=== PATIENT | female | born 1950 | race Caucasian/White ===

== ENCOUNTER → 2017-01-27 | Outpatient (CLI) | payer MEDICARE, OTHER ==
--- NOTE | 2017-01-27 20:44 | CT ---
EXAMINATION TYPE: CT abdomen pelvis wo con DATE OF EXAM: 01/27/2017 8:33 PM COMPARISON: NONE HISTORY: PT states of abdominal pain, hx of cholecystectomy. CT DLP: 852.0 mGycm Automated exposure control for dose reduction was used. TECHNIQUE: Helical acquisition of images was performed from the lung bases through the pelvis. FINDINGS: There is mild linear density in the lingula of the left upper lobe consistent with atelectasis. There is no pleural effusion. Heart size is normal. There are clips from cholecystectomy. Liver shows no focal defect. Spleen appears normal. There is no evidence of pancreatic mass. Bile ducts are not dilated. There is no adrenal mass. Kidneys have normal size and contour. There is no hydronephrosis. Ureters a re not dilated. Bladder distends smoothly. I see no intestinal wall thickening. There are no dilated loops. Appendix appears normal. I see no bony destructive process. IMPRESSION: MINIMAL ATELECTASIS IN THE LINGULA LEFT UPPER LOBE. NO SIGN OF ACUTE ABDOMEN AND PELVIS. I DO NOT SEE A CAUSE FOR ABDOMINAL PAIN. NORMAL APPENDIX. No adverse change compared to old exam.
== END | disposition home or self-care (01) ==
LOC: RADCTMAIN 15:07
PROVIDERS: ATTEND Family Medicine
DX: R10.30 Lower abdominal pain, unspecified (principal); R19.7 Diarrhea, unspecified
CPT/HCPCS: 74176

== ENCOUNTER → 2017-03-16 | Outpatient (CLI) | payer MEDICARE, OTHER ==
--- NOTE | 2017-03-16 16:13 | US ---
EXAMINATION TYPE: US thyroid st tissue head/neck DATE OF EXAM: 03/16/2017 4:00 PM COMPARISON: NONE CLINICAL HISTORY: 66-year-old female E03.8 hypothyroidism. TECHNIQUE: Multiple sonographic images of the thyroid gland are obtained. FINDINGS: Right Lobe: 3.2 x 0.9 x 1.0 cm Left Lobe: 2.5 x 0.8 x 1.0 cm Isthmus Thickness: 0.3 cm There is diffuse glandular heterogeneity without discrete nodule. IMPRESSION: Small and heterogeneous thyroid gland suggesting chronic hypothyroidism. No discrete nodule.
== END | disposition home or self-care (01) ==
LOC: RADUSWWP 15:40
PROVIDERS: ATTEND Internal Medicine Endocrinology, Diabetes & Metabolism
DX: E03.8 Other specified hypothyroidism (principal)
CPT/HCPCS: 76536

== ENCOUNTER → 2017-03-18 | Outpatient (CLI) | payer MEDICARE, OTHER ==
--- NOTE | 2017-03-18 13:07 | FL ---
Esophagram INDICATION: Dysphagia Esophagram is performed utilizing double air contrast technique. Esophagus dilates to normal caliber has normal contour to the gastroesophageal junction. Gastroesopha geal junction opens to normal caliber. No intraluminal arterial defects are evident. Reflux was evide nt to the level of the clavicles during the examination. There is poor stripping of the esophageal bolus in the horizontal drinking position. IMPRESSIONS: 1. Mild presbyesophagus. 2. Gastroesophageal reflux
== END | disposition home or self-care (01) ==
LOC: RADFLMAIN 11:04
PROVIDERS: ATTEND Surgery
DX: K21.9 Gastro-esophageal reflux disease without esophagitis (principal); K22.8 Other specified diseases of esophagus
CPT/HCPCS: 74220

== ENCOUNTER 2017-04-14 18:11 | Emergency (ER) | payer MEDICARE, OTHER ==
[2017-04-14] MEDS ORDERED: HYDROmorphone 1 MG/ML 1 ML SYRINGE IVP STA ×2 (18:37→20:28)
[2017-04-14] MEDS ORDERED: ONDANSETRON 4 MG/2 ML VIAL IVP STA (18:37)
[2017-04-14] MEDS ORDERED: SODIUM CHLORIDE 0.9% 1,000 ML IV STA (18:37)
--- NOTE | 2017-04-14 18:46 | ED ---
General Adult HPI - General Chief complaint: Headache Stated complaint: Migraine Time Seen by Provider: 04/14/17 18:28 Source: patient, RN notes reviewed, old records reviewed Mode of arrival: ambulatory Limitations: no limitations - History of Present Illness Initial comments: chief complaint and history of present illness this is a 66-year-old female with a complaint of headache. The patient has a history of migraine headaches. She had an EGD done this morning with a diagnosis of Trujillo's esophagus. The patient's blood pressure today is 208/99. Nausea no vomiting, no complaint of weakness or any neuro deficits. - Related Data Home Medications Medication Instructions Recorded Confirmed Pramipexole [Mirapex] 0.5 mg PO HS 04/18/14 04/14/17 buPROPion XL [Wellbutrin XL] 300 mg PO QAM 04/18/14 04/14/17 Hydrocodone/Acetaminophen 1 tab PO TID PRN 07/03/14 04/14/17 [Hydrocodone/Acetaminophen 10-325] ALPRAZolam [Xanax] 2 mg PO DAILY PRN 09/15/14 04/14/17 Dexlansoprazole [Dexilant] 60 mg PO HS 06/20/16 04/14/17 Simvastatin [Zocor] 10 mg PO HS 06/20/16 04/14/17 Estradiol 2 mg PO HS 04/14/17 04/14/17 Famotidine [Pepcid] 40 mg PO DAILY 04/14/17 04/14/17 Levothyroxine Sodium [Synthroid] 112 mcg PO DAILY 04/14/17 04/14/17 buPROPion HCL [Wellbutrin XL] 150 mg PO DAILY 04/14/17 04/14/17 Previous Rx's Medication Instructions Recorded Butalb/Acetaminophen/Caffeine 1 cap PO Q4HR #10 cap 04/14/17 [Fioricet 50-300-40 mg Capsule] Lisinopril [Zestril] 5 mg PO DAILY #60 tab 04/14/17 Allergies Allergy/AdvReac Type Severity Reaction Status Date / Time adhesive Allergy Rash/Hives Verified 04/14/17 19:17 cephalexin monohydrate Allergy Rash/Hives Verified 04/14/17 19:17 [From Keflex] ciprofloxacin [From Cipro] Allergy Rash/Hives Verified 04/14/17 19:17 codeine Allergy Rash/Hives Verified 04/14/17 19:17 diphenhydramine HCl Allergy Rash/Hives Verified 04/14/17 19:17 [From Benadryl] erythromycin base Allergy Rash/Hives Verified 04/14/17 19:17 [Erythromycin Base] eucalyptus Allergy Rash/Hives Verified 04/14/17 19:17 heparin Allergy Rash/Hives Verified 04/14/17 19:17 Iodinated Contrast Media - Allergy Rash/Hives Verified 04/14/17 19:17 Oral and [Iodinated Contrast Media - IV Dye] iodine Allergy Rash/Hives Verified 04/14/17 19:17 loperamide HCl Allergy Rash/Hives Verified 04/14/17 19:17 [From Imodium A-D] Penicillins Allergy Rash/Hives Verified 04/14/17 19:17 ranitidine HCl [From Zantac] Allergy Rash/Hives Verified 04/14/17 19:17 ropinirole HCl [From Requip] Allergy Rash/Hives Verified 04/14/17 19:17 shellfish derived Allergy Rash/Hives Verified 04/14/17 19:17 Sulfa (Sulfonamide Allergy Rash/Hives Verified 04/14/17 19:17 Antibiotics) vancomycin Allergy Anaphylaxis Verified 04/14/17 19:17 hydrocodone bitartrate AdvReac Rapid Verified 04/14/17 19:17 [From Vicodin] Heart Rate Review of Systems ROS Statement: Those systems with pertinent positive or pertinent negative responses have been documented in the HPI. review of systems patient has headache but no visual acuity changes she has discomfort to the left trapezius muscle. History of migraine type problems tension type headaches. No stiff neck. Nausea no vomiting no chest pain no shortness of breath no GI/ problems. Though she has a history of GERD and had an EGD done today that showed evidence of Trujillo's esophagitis. No neuro deficits. All systems reviewed Past medical problems significant for right breast cancer, mild COPD, TIA, GERD diagnosed with Trujillo's esophagitis. Some memory impairment, muscle skeletal disorder, hypothyroidism vascular disorder lower extremities. And hypothyroidism. Patient surgeries bladder suspension twice, bilateral breast mastectomies for right sided breast cancer. Cholecystectomy, total hysterectomy , arthroscopic surgery left knee. Tonsillectomy tubal ligation. Family history significant for father had squamous carcinoma Brother had anal squamous carcinoma. Grandmother had chest wall cancer. Patient quit smoking 20 years ago quit drinking 39 years ago ROS Other: All systems not noted in ROS Statement are negative. Past Medical History Past Medical History: Cancer, COPD, CVA/TIA, GERD/Reflux, Memory Impairment, Musculoskeletal Disorder, Thyroid Disorder, Vascular Disorder Additional Past Medical History / Comment(s): HYPOTHYROID, HX OF TIA DUE TO HEAD TRAUMA, RLS, MIGRAINES, NEUROPATHY, PERIPHERAL ARTERY DISEASE, HX OF PNEUMONIA & PLEURISY. HX OF MONO., IBS, DJD & BONE SPURS WITH BACK & NECK PAIN. , BAKERS CYSTS., HX OF ANEMIA. , BREAST CANCER 02/2014 WITH 6 MONTHS OF CHEMO., SURGICAL INFECTION WITH REMOVAL OF TISSUE EXPANDERS 09/2014, PALPITATIONS, History of Any Multi-Drug Resistant Organisms: None Reported Past Surgical History: Bladder Surgery, Breast Surgery, Cholecystectomy, Hysterectomy, Orthopedic Surgery, Tonsillectomy, Tubal Ligation Additional Past Surgical History / Comment(s): BLADDER SUSPENSION, LEFT KNEE ARTHROSCOPY, CATARACTS, CARPAL TUNNEL., TUNDE MASTECTOMY /LYMPHECTOMY ON RIGHT SIDE ONLY W/ TISSUE EXPANDERS(). , REMOVAL OF TISSUE EXPANDERS (09/2014), EXPANDERS REINSERTED 02/2015. BREAST IMPLANTS Past Anesthesia/Blood Transfusion Reactions: Previous Problems w/ Anesthesia Additional Past Anesthesia/Blood Transfusion Reaction / Comment(s): BP RUNS LOW AND DIFFICULTY WAKING UP Past Psychological History: Anxiety, Depression Smoking Status: Former smoker Past Alcohol Use History: None Reported Additional Past Alcohol Use History / Comment(s): HX OF ETOH USE, STATES SOBER 39 YRS, ATTENDS A.A., STARTED SMOKING AT AGE 17. QUIT 19 YEARS AGO Past Drug Use History: None Reported Additional Drug Use History / Comment(s): TEENAGER. - Past Family History Father Family Medical History: Cancer Additional Family Medical History / Comment(s): CANCER BEHIND ESOPHAGUS. Mother Family Medical History: No Reported History Brother(s) Family Medical History: Cancer Additional Family Medical History / Comment(s): ANAL CANCER General Exam - General Exam Comments Initial Comments: General: The patient is awake and alert, blunting of a headache. Nausea no vomiting. Vital signs temp 98.4 pulse 85 respiratory rate 20 pulse ox 99% room . Eye: Pupils are equal, round and reactive to light, extra-ocular movements are intact ; there is normal conjunctiva bilaterally. No signs of icterus. Ears, nose, mouth and throat: There are moist mucous membranes and no oral lesions. Neck: The neck is supple, there is no tenderness , no anterior cervical lymphadenopathy thyroid not enlarged. Cardiovascular: There is a regular rate and rhythm. No murmur, rub or gallop is appreciated. Respiratory: Lungs are clear to auscultation, respirations are non-labored, breath sounds are equal. No wheezes, stridor, rales, or rhonchi. Gastrointestinal: Soft, non-distended, non-tender abdomen without masses or organomegaly noted. There is no rebound or guarding present. No CVA tenderness. Bowel sounds are unremarkable. Back: no back pain Musculoskeletal: history of peripheral vascular disease Neurological: CN II-XII intact, There are no obvious motor or sensory deficits. Coordination appears grossly intact. Speech is normal.no focal or lateralizing findings Skin: Skin is warm and dry and no rashes or lesions are noted. Limitations: no limitations Course Vital Signs 04/14/17 04/14/17 04/14/17 18:20 19:31 20:26 Temperature 98.4 F 97.5 F L Pulse Rate 85 74 75 Respiratory 20 16 16 Rate Blood Pressure 208/99 165/74 153/76 O2 Sat by Pulse 99 97 98 Oximetry Medical Decision Making - Medical Decision Making patient states she was feeling better on the initial dose of medications. After 1 hour blood pressure came down currently 153/76 headache started coming back at this time. No nausea no vomiting. At this time the patient be given 1 mg of Dilaudid. Advised to follow-up with family physician should be placed on lisinopril 5 mg daily. Also advised to use Fioricet one every 6H when necessary headache as needed. Disposition Clinical Impression: Stress headache Disposition: HOME SELF-CARE Condition: Fair Instructions: Acute Headache (ED) Additional Instructions: take Fioricet one tablet every 4-6 hours for headache. Take lisinopril 1 tablet daily. Get blood pressure checked daily and follow-up with family physician Prescriptions: Butalb/Acetaminophen/Caffeine [Fioricet 50-300-40 mg Capsule] 1 cap PO Q4HR #10 cap Lisinopril [Zestril] 5 mg PO DAILY #60 tab Referrals: Sreedhar Gabriel III, MD [Primary Care Provider] - 1-2 days Time of Disposition: 20:32
[2017-04-14 19:32] VITALS: RESP 16
[2017-04-14 20:27] VITALS: TEMP 97.5
[2017-04-14 20:46] VITALS: BP 162/83; PULSE 72
== END 2017-04-14 20:51 | disposition home or self-care (01) ==
LOC: EC 18:11
DX: G44.209 Tension-type headache, unspecified, not intractable (principal); J44.9 Chronic obstructive pulmonary disease, unspecified; K21.9 Gastro-esophageal reflux disease without esophagitis; E03.9 Hypothyroidism, unspecified; K58.9 Irritable bowel syndrome, unspecified; G62.9 Polyneuropathy, unspecified; F32.9 Major depressive disorder, single episode, unspecified; F41.9 Anxiety disorder, unspecified; Z85.3 Personal history of malignant neoplasm of breast; Z87.891 Personal history of nicotine dependence; Z79.3 Long term (current) use of hormonal contraceptives; Z79.899 Other long term (current) drug therapy; Z88.5 Allergy status to narcotic agent; Z88.1 Allergy status to other antibiotic agents; Z91.041 Radiographic dye allergy status; Z88.2 Allergy status to sulfonamides; Z88.0 Allergy status to penicillin; Z88.8 Allergy status to other drugs, medicaments and biological substances; Z91.048 Other nonmedicinal substance allergy status
CPT/HCPCS: 99283; 96374; 96375; 96376; 96361 ×2; J2405; J1170

== ENCOUNTER → 2017-05-16 | Outpatient (CLI) | payer MEDICARE, OTHER | END | disposition home or self-care (01) | LOC: LABWHC1 12:23 | PROVIDERS: ATTEND Internal Medicine Endocrinology, Diabetes & Metabolism | DX: E03.8 Other specified hypothyroidism (principal) | CPT/HCPCS: 36415; 84443 ==

== ENCOUNTER → 2017-06-19 | Outpatient (CLI) | payer MEDICARE, OTHER ==
[2017-06-19 11:27] LABS: Blood Urea Nitrogen 16 mg/dL (7-17); Non-African American GFR(MDRD) >60 (>60 ml/min/1.73 sqM)
--- NOTE | 2017-06-19 13:24 | MR ---
EXAMINATION TYPE: MR brain wo/w con DATE OF EXAM: 06/19/2017 1:05 PM COMPARISON: Previous study dated 11/13/2016. HISTORY: Other abnormal findings on diagnostic imaging, migraines TECHNIQUE: Multiplanar, multiecho imaging of the brain was obtained with and without intravenous adm inistration of 13 mL intravenous MultiHance. FINDINGS: Midline structures are unremarkable. There is a normal craniocervical junction. Echoplanar diffusion imaging demonstrates no areas of restricted diffusion. There are normal vascular flow voids. There is mild mucoperiosteal thickening involving the ethmoid air cells. The orbits are normal. There is no evidence of a CP angle mass lesion. There are approximately 5 I signal FLAIR lesions in the deep white matter tracts of the cerebral vitor spheres. These are essentially unchanged from previous. There is no mass effect, midline shift or int racranial blood. Lesion in the ventral giovanna which previously measured 4.6 mm today measures of 5.2 mm. No other areas of abnormal enhancement are seen. IMPRESSION: 1. NO ACUTE INTRACRANIAL ABNORMALITY. 2. STABLE HIGH SIGNAL FLAIR LESION WITHIN THE DEEP WHITE MATTER TRACTS OF THE MEDIAL HEMISPHERES MAY REFLECT SMALL VESSEL DISEASE. OTHER FORMS OF DEMYELINATION ARE NOT EXCLUDED. 3. 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
== END | disposition home or self-care (01) ==
LOC: RADMRIMAIN 10:58
PROVIDERS: ATTEND Family Medicine
DX: R90.89 Other abnormal findings on diagnostic imaging of central nervous system (principal)
CPT/HCPCS: 82565; 84520; 70553; A9577

== ENCOUNTER → 2017-12-26 | Outpatient (CLI) | payer MEDICARE, OTHER ==
--- NOTE | 2017-12-26 09:23 | MR ---
MR lumbar spine wo/w con Low back pain Gadavist Multiplanar, multiecho imaging of the lumbar spine was obtained without contrast on a 3 Elsi magnet. REFERENCE: Previous study dated 11/21/2011. FINDINGS: Paraspinal soft tissues are normal. Vertebral body height is maintained. There is a mild, grade 1 degenerative spondylolisthesis of L5 on S1. Cord signal is maintained. The conus ends normally at the level of the mid body of L2. At T12-L1, is mild disc space loss. Intervertebral foramina are well maintained. There is no signific ant compressive discopathy. The facets are unremarkable. At L1-2, there is mild hypertrophic change in the facets. At L2-3, there is mild disc space loss. There is a mild, bilobed disc displacement. The intervertebra l foramina appear reasonably well-maintained. There is capsulitis and hypertrophic change in the face ts. At L3-4, the intervertebral foramina are well maintained. There is a diffuse disc displacement. This is effacing the thecal sac. There is mild hypertrophic change and capsulitis in the facets. At L4-5, the intervertebral foramina are well maintained. There is a diffuse disc displacement effaci ng the thecal sac. This hypertrophic changes in the facets. There is mild trefoiling of the thecal sa c. At L5-S1, The intervertebral foramina appear well maintained. There are hypertrophic changes in the f acets. There is a diffuse disc displacement. IMPRESSION: 1. MILD, DIFFUSE DEGENERATIVE DISC DISEASE AND FACET ARTHROPATHY. 2. DIFFUSE DISC DISPLACEMENT, L4-5 CAUSING MILD TREFOILING OF THE THECAL SAC. 3. MILD COMMON DEGENERATIVE GRADE 1 SPONDYLOLISTHESIS OF L5 ON S1.
== END | disposition home or self-care (01) ==
LOC: RADMRIMAIN 08:25
PROVIDERS: ATTEND Psychiatry & Neurology Neurology
DX: M51.26 Other intervertebral disc displacement, lumbar region (principal); M51.36 Other intervertebral disc degeneration, lumbar region; M43.17 Spondylolisthesis, lumbosacral region; M46.86 Other specified inflammatory spondylopathies, lumbar region
CPT/HCPCS: 72158; A9581

== ENCOUNTER → 2018-01-06 | Outpatient (CLI) | payer MEDICARE, OTHER ==
--- NOTE | 2018-01-06 15:58 | NM ---
EXAMINATION TYPE: NM bone scan whole body DATE OF EXAM: 01/06/2018 COMPARISON: NONE HISTORY: Pleurodynia, right lower leg pain, right rib pain Delayed whole-body scanning was performed following the injection of 21mCi Tc 99m MDP. Images acquir ed 3 hours post injection. FINDINGS: There is mild uptake at the costovertebral angle of the approximate eighth rib on the left likely deg enerative, there is mild spinal curvature, mild uptake also present at the 11th costovertebral angle level to lesser extent. Focal uptake present within the midfoot region on the right. Soft tissue upta ke is normal. Uptake within the knees, hands, wrists, shoulders and sternoclavicular joints is likely degenerative. IMPRESSION: Degenerative changes are favored. Metastatic disease felt to be less likely, consider follow-up as in dicated.
== END | disposition home or self-care (01) ==
LOC: RADNMMAIN 09:57
PROVIDERS: ATTEND Family Medicine
DX: M79.661 Pain in right lower leg (principal); R07.81 Pleurodynia
CPT/HCPCS: 78306; A9503

== ENCOUNTER → 2018-02-17 | Outpatient (CLI) | payer MEDICARE, OTHER ==
--- NOTE | 2018-02-17 14:31 | XR ---
EXAMINATION TYPE: XR chest 2V DATE OF EXAM: 02/17/2018 COMPARISON: 06/20/2016 HISTORY: Shortness of breath TECHNIQUE: Frontal and lateral views of the chest are obtained. FINDINGS: Scattered senescent parenchymal changes noted. Hyperinflation compatible with COPD. No evidence for infiltrate. No evidence for atelectasis. Heart size is stable. Mediastinal structures are stable and grossly unremarkable. No evidence for hilar prominence. Degenerative changes dorsal spine. IMPRESSION: 1. No evidence for acute pulmonary disease.
== END | disposition home or self-care (01) ==
LOC: RADXRMAIN 14:11
PROVIDERS: ATTEND Family Medicine
DX: R05 Cough (principal); R06.2 Wheezing
CPT/HCPCS: 71046

== ENCOUNTER 2018-03-20 20:46 | Emergency (ER) | payer MEDICARE, OTHER ==
[2018-03-20 21:04] VITALS: RESP 18
[2018-03-20] MEDS ORDERED: METOCLOPRAMIDE 5 MG/ML 2 ML VIAL IM STA (21:40)
[2018-03-20] MEDS ORDERED: KETOROLAC 30 MG/ML 1 ML VIAL IM STA (21:40)
[2018-03-20] MEDS ORDERED: DIAZEPAM 5 MG TAB PO STA (21:41)
--- NOTE | 2018-03-20 21:44 | ED ---
Headache HPI - General Chief Complaint: Headache Stated Complaint: Migraine Time Seen by Provider: 03/20/18 21:27 Mode of arrival: ambulatory Limitations: no limitations - History of Present Illness Initial Comments: 67-year-old female presenting with headache that began yesterday. Patient states started as a dull, viselike dietary clerk around her whole head. She states it has been progressively worsening since then. She does accompanied by photophobia. She admits to diagnose history of migraines. Denies any focal weakness, numbness, or vision changes. Denies any head injury. Denies any blood thinner use. Patient states she took aspirin without relief. Denies F/C. - Related Data Home Medications Medication Instructions Recorded Confirmed Pramipexole [Mirapex] 0.5 mg PO HS 04/18/14 04/14/17 buPROPion XL [Wellbutrin XL] 300 mg PO QAM 04/18/14 04/14/17 Hydrocodone/Acetaminophen 1 tab PO TID PRN 07/03/14 04/14/17 [Hydrocodone/Acetaminophen 10-325] ALPRAZolam [Xanax] 2 mg PO DAILY PRN 09/15/14 04/14/17 Dexlansoprazole [Dexilant] 60 mg PO HS 06/20/16 04/14/17 Simvastatin [Zocor] 10 mg PO HS 06/20/16 04/14/17 Estradiol 2 mg PO HS 04/14/17 04/14/17 Famotidine [Pepcid] 40 mg PO DAILY 04/14/17 04/14/17 Levothyroxine Sodium [Synthroid] 112 mcg PO DAILY 04/14/17 04/14/17 buPROPion HCL [Wellbutrin XL] 150 mg PO DAILY 04/14/17 04/14/17 Previous Rx's Medication Instructions Recorded Butalb/Acetaminophen/Caffeine 1 cap PO Q4HR #10 cap 04/14/17 [Fioricet 50-300-40 mg Capsule] Lisinopril [Zestril] 5 mg PO DAILY #60 tab 04/14/17 Allergies Allergy/AdvReac Type Severity Reaction Status Date / Time adhesive Allergy Rash/Hives Verified 03/20/18 21:05 cephalexin monohydrate Allergy Rash/Hives Verified 03/20/18 21:05 [From Keflex] ciprofloxacin [From Cipro] Allergy Rash/Hives Verified 03/20/18 21:05 codeine Allergy Rash/Hives Verified 03/20/18 21:05 diphenhydramine HCl Allergy Rash/Hives Verified 03/20/18 21:05 [From Benadryl] erythromycin base Allergy Rash/Hives Verified 03/20/18 21:05 [Erythromycin Base] eucalyptus Allergy Rash/Hives Verified 03/20/18 21:05 heparin Allergy Rash/Hives Verified 03/20/18 21:05 Iodinated Contrast- Oral and Allergy Rash/Hives Verified 03/20/18 21:05 IV Dye [Iodinated Contrast Media - IV Dye] iodine Allergy Rash/Hives Verified 03/20/18 21:05 levofloxacin [From Levaquin] Allergy Rash/Hives Verified 03/20/18 21:05 loperamide HCl Allergy Rash/Hives Verified 03/20/18 21:05 [From Imodium A-D] Penicillins Allergy Rash/Hives Verified 03/20/18 21:05 ranitidine HCl [From Zantac] Allergy Rash/Hives Verified 03/20/18 21:05 ropinirole HCl [From Requip] Allergy Rash/Hives Verified 03/20/18 21:05 shellfish derived Allergy Rash/Hives Verified 03/20/18 21:05 Sulfa (Sulfonamide Allergy Rash/Hives Verified 03/20/18 21:05 Antibiotics) vancomycin Allergy Anaphylaxis Verified 03/20/18 21:05 hydrocodone bitartrate AdvReac Rapid Verified 03/20/18 21:05 [From Vicodin] Heart Rate Review of Systems ROS Statement: Those systems with pertinent positive or pertinent negative responses have been documented in the HPI. Review of Systems Constitutional: Denies fever, chills Eyes: Denies change in vision, Denies pain Ears, nose, mouth, throat: Denies headaches, Denies sore throat Cardiovascular: Denies chest pain. Denies palpitations Respiratory: Denies shortness of breath, Denies cough Gastrointestinal: Denies abdominal pain. Denies nausea, vomiting, diarrhea. Genitourinary: Denies hematuria, Denies infections Musculoskeletal: Denies pain, Denies swelling Integumentary: Denies rash Neurological: Positive headache, focal weakness, focal numbness Psychiatric: Denies anxiety, Denies depression Hematologic/Lymphatic: Denies easy bleeding or bruising ROS Other: All systems not noted in ROS Statement are negative. Past Medical History Past Medical History: Cancer, COPD, CVA/TIA, GERD/Reflux, Memory Impairment, Musculoskeletal Disorder, Thyroid Disorder, Vascular Disorder Additional Past Medical History / Comment(s): HYPOTHYROID, HX OF TIA DUE TO HEAD TRAUMA, RLS, MIGRAINES, NEUROPATHY, PERIPHERAL ARTERY DISEASE, HX OF PNEUMONIA & PLEURISY. HX OF MONO., IBS, DJD & BONE SPURS WITH BACK & NECK PAIN. , BAKERS CYSTS., HX OF ANEMIA. , BREAST CANCER 02/2014 WITH 6 MONTHS OF CHEMO., SURGICAL INFECTION WITH REMOVAL OF TISSUE EXPANDERS 09/2014, PALPITATIONS, History of Any Multi-Drug Resistant Organisms: None Reported Past Surgical History: Bladder Surgery, Breast Surgery, Cholecystectomy, Hysterectomy, Orthopedic Surgery, Tonsillectomy, Tubal Ligation Additional Past Surgical History / Comment(s): BLADDER SUSPENSION, LEFT KNEE ARTHROSCOPY, CATARACTS, CARPAL TUNNEL., TUNDE MASTECTOMY /LYMPHECTOMY ON RIGHT SIDE ONLY W/ TISSUE EXPANDERS(). , REMOVAL OF TISSUE EXPANDERS (09/2014), EXPANDERS REINSERTED 02/2015. BREAST IMPLANTS Past Anesthesia/Blood Transfusion Reactions: Previous Problems w/ Anesthesia Additional Past Anesthesia/Blood Transfusion Reaction / Comment(s): BP RUNS LOW AND DIFFICULTY WAKING UP Past Psychological History: Anxiety, Depression Smoking Status: Former smoker Past Alcohol Use History: None Reported Past Drug Use History: None Reported - Past Family History Father Family Medical History: Cancer Additional Family Medical History / Comment(s): CANCER BEHIND ESOPHAGUS. Mother Family Medical History: No Reported History Brother(s) Family Medical History: Cancer Additional Family Medical History / Comment(s): ANAL CANCER General Exam - General Exam Comments Initial Comments: General: Awake, alert, No acute Distress HENT: Normocephalic. Atraumatic Eyes: PERRL. EOMI. No scleral icterus. No injected conjunctiva Neck: Full ROM Chest/Lungs: Clear to auscultation bilaterally. No wheezing, rhonchi, or rales Cardiac: Regular rate, rhythm. No murmurs or rubs Abdomen/GI: Soft, nontender, nondistended. No rebound, guarding, or rigidity. Musculoskeletal: Full ROM Skin: Warm, dry, intact Neurologic: A/Ox3, no weakness, no sensory deficit, no abnormal gait, no coordination deficit Limitations: no limitations Course Vital Signs 03/20/18 21:03 Temperature 98.5 F Pulse Rate 77 Respiratory 18 Rate Blood Pressure 178/85 O2 Sat by Pulse 98 Oximetry Medical Decision Making - Medical Decision Making 67 yoF presenting with PILLAI. On initial exam the patient is awake, alert, and in NAD. VSS. Patient has no neurologic deficit. She has a history of headaches. she has no history of trauma. Her symptoms are nonconsistent with SAH. Her symptoms improved while in the department. She was able to ambulate without any distress. At this time the patient is stable for outpatient follow up of her PILLAI. There is no evidence of life threatening diagnoses. No further emergent workup is indicated. Patient clear on return to ED instructions. Disposition Clinical Impression: Headache Disposition: HOME SELF-CARE Condition: Good Is patient prescribed a controlled substance at d/c from ED?: No Referrals: Sreedhar aGbriel III, MD [Primary Care Provider] - 1-2 days
[2018-03-20 23:31] VITALS: BP 124/69; PULSE 69; TEMP 97.5
== END 2018-03-20 23:30 | disposition home or self-care (01) ==
LOC: EC 20:46
DX: R51 Headache (principal); H53.149 Visual discomfort, unspecified; G25.81 Restless legs syndrome; E03.9 Hypothyroidism, unspecified; K21.9 Gastro-esophageal reflux disease without esophagitis; F32.9 Major depressive disorder, single episode, unspecified; Z87.891 Personal history of nicotine dependence; Z79.82 Long term (current) use of aspirin; Z79.899 Other long term (current) drug therapy; Z88.0 Allergy status to penicillin; Z88.1 Allergy status to other antibiotic agents; Z88.2 Allergy status to sulfonamides; Z88.5 Allergy status to narcotic agent; Z88.8 Allergy status to other drugs, medicaments and biological substances; Z85.3 Personal history of malignant neoplasm of breast; Z91.013 Allergy to seafood; Z91.041 Radiographic dye allergy status; Z91.09 Other allergy status, other than to drugs and biological substances; Z92.21 Personal history of antineoplastic chemotherapy; Z90.13 Acquired absence of bilateral breasts and nipples; Z98.890 Other specified postprocedural states; Z87.39 Personal history of other diseases of the musculoskeletal system and connective tissue
CPT/HCPCS: 99283; J2765; J1885

== ENCOUNTER 2018-05-24 12:10 | Emergency (ER) | payer MEDICARE, OTHER ==
[2018-05-24 12:27] VITALS: RESP 18
[2018-05-24 12:53] LABS: Appearance,Urine Clear (Clear); Bilirubin,Urine Negative (Negative); Blood,Urine Negative (Negative); Color,Urine Colorless; Glucose,Urine (UA) Negative (Negative); Ketones,Urine Negative (Negative); Leukocyte Esterase,Urine Negative (Negative); Nitrite,Urine Negative (Negative); Protein,Urine Negative (Negative); Specific Gravity,Urine 1.002 (1.001-1.035); Urobilinogen,Urine <2.0 mg/dL (<2.0)
[2018-05-24] MEDS ORDERED: SODIUM CHLORIDE 0.9% 500 ML IV ONE (13:23)
[2018-05-24] MEDS ORDERED: MORPHINE SULFATE 2 MG/ML SYRINGE IVP STA (13:23)
--- NOTE | 2018-05-24 13:26 | ED ---
General Adult HPI - General Chief complaint: Abdominal Pain Stated complaint: ABd Pain, Lower Back Time Seen by Provider: 05/24/18 13:16 Source: patient, RN notes reviewed, old records reviewed Mode of arrival: ambulatory Limitations: no limitations - History of Present Illness Initial comments: 67-year-old female presenting for evaluation of right flank pain and right upper quadrant abdominal pain. Patient's symptoms began approximately 4 AM which she is 9 hours prior to evaluation. She's had no nausea or vomiting. She describes a burning epigastric pain associated with her right flank pain and right upper quadrant pain. She has had her gallbladder removed in the past. Last bowel movement was yesterday was normal. No diarrhea. No lower abdominal pain. No dysuria or hematuria. Pain is colicky in nature. She has a dull constant right flank pain associated with this. No history of kidney stones. - Related Data Home Medications Medication Instructions Recorded Confirmed Pramipexole [Mirapex] 0.5 mg PO HS 04/18/14 05/24/18 buPROPion XL [Wellbutrin XL] 300 mg PO [facility] 04/18/14 05/24/18 Hydrocodone/Acetaminophen 1 tab PO TID PRN 07/03/14 05/24/18 [Hydrocodone/Acetaminophen 10-325] ALPRAZolam [Xanax] 2 mg PO DAILY PRN 09/15/14 05/24/18 Dexlansoprazole [Dexilant] 60 mg PO HS 06/20/16 05/24/18 Simvastatin [Zocor] 10 mg PO HS 06/20/16 05/24/18 Estradiol 2 mg PO HS 04/14/17 05/24/18 Famotidine [Pepcid] 40 mg PO DAILY 04/14/17 05/24/18 Cholecalciferol (Vitamin D3) 2,000 unit PO DAILY 05/24/18 05/24/18 [Vitamin D3] Cyanocobalamin (Vitamin B-12) 1,000 mcg PO DAILY 05/24/18 05/24/18 [Vitamin B-12] Levothyroxine Sodium [Synthroid] 125 mcg PO DAILY 05/24/18 05/24/18 Allergies Allergy/AdvReac Type Severity Reaction Status Date / Time adhesive Allergy Rash/Hives Verified 05/24/18 12:27 cephalexin monohydrate Allergy Rash/Hives Verified 05/24/18 13:34 [From Keflex] ciprofloxacin [From Cipro] Allergy Rash/Hives Verified 05/24/18 13:34 codeine Allergy Rash/Hives Verified 05/24/18 12:27 diphenhydramine HCl Allergy Rash/Hives Verified 05/24/18 13:34 [From Benadryl] erythromycin base Allergy Rash/Hives Verified 05/24/18 13:34 [Erythromycin Base] eucalyptus Allergy Rash/Hives Verified 05/24/18 13:34 heparin Allergy Rash/Hives Verified 05/24/18 13:34 Iodinated Contrast- Oral and Allergy Rash/Hives Verified 05/24/18 13:34 IV Dye [Iodinated Contrast Media - IV Dye] iodine Allergy Rash/Hives Verified 05/24/18 13:34 levofloxacin [From Levaquin] Allergy Rash/Hives Verified 05/24/18 13:34 loperamide HCl Allergy Rash/Hives Verified 05/24/18 13:34 [From Imodium A-D] Penicillins Allergy Rash/Hives Verified 05/24/18 13:34 ranitidine HCl [From Zantac] Allergy Rash/Hives Verified 05/24/18 13:34 ropinirole HCl [From Requip] Allergy Rash/Hives Verified 05/24/18 13:34 shellfish derived Allergy Rash/Hives Verified 05/24/18 12:27 Sulfa (Sulfonamide Allergy Rash/Hives Verified 05/24/18 13:34 Antibiotics) vancomycin Allergy Anaphylaxis Verified 05/24/18 13:34 hydrocodone bitartrate AdvReac Rapid Verified 05/24/18 13:34 [From Vicodin] Heart Rate Review of Systems ROS Statement: Those systems with pertinent positive or pertinent negative responses have been documented in the HPI. ROS Other: All systems not noted in ROS Statement are negative. Past Medical History Past Medical History: Cancer, COPD, CVA/TIA, GERD/Reflux, Memory Impairment, Musculoskeletal Disorder, Thyroid Disorder, Vascular Disorder Additional Past Medical History / Comment(s): HYPOTHYROID, HX OF TIA DUE TO HEAD TRAUMA, RLS, MIGRAINES, NEUROPATHY, PERIPHERAL ARTERY DISEASE, HX OF PNEUMONIA & PLEURISY. HX OF MONO., IBS, DJD & BONE SPURS WITH BACK & NECK PAIN. , BAKERS CYSTS., HX OF ANEMIA. , BREAST CANCER 02/2014 WITH 6 MONTHS OF CHEMO., SURGICAL INFECTION WITH REMOVAL OF TISSUE EXPANDERS 09/2014, PALPITATIONS, History of Any Multi-Drug Resistant Organisms: None Reported Past Surgical History: Bladder Surgery, Breast Surgery, Cholecystectomy, Hysterectomy, Orthopedic Surgery, Tonsillectomy, Tubal Ligation Additional Past Surgical History / Comment(s): BLADDER SUSPENSION, LEFT KNEE ARTHROSCOPY, CATARACTS, CARPAL TUNNEL., TUNDE MASTECTOMY /LYMPHECTOMY ON RIGHT SIDE ONLY W/ TISSUE EXPANDERS(). , REMOVAL OF TISSUE EXPANDERS (09/2014), EXPANDERS REINSERTED 02/2015. BREAST IMPLANTS Past Anesthesia/Blood Transfusion Reactions: Previous Problems w/ Anesthesia Additional Past Anesthesia/Blood Transfusion Reaction / Comment(s): BP RUNS LOW AND DIFFICULTY WAKING UP Past Psychological History: Anxiety, Depression Smoking Status: Former smoker Past Alcohol Use History: None Reported Past Drug Use History: None Reported - Past Family History Father Family Medical History: Cancer Additional Family Medical History / Comment(s): CANCER BEHIND ESOPHAGUS. Mother Family Medical History: No Reported History Brother(s) Family Medical History: Cancer Additional Family Medical History / Comment(s): ANAL CANCER General Exam Limitations: no limitations General appearance: alert, in no apparent distress Head exam: Present: atraumatic, normocephalic Eye exam: Present: normal appearance, PERRL ENT exam: Present: normal exam Neck exam: Present: normal inspection. Absent: tenderness Respiratory exam: Present: normal lung sounds bilaterally. Absent: respiratory distress Cardiovascular Exam: Present: regular rate, normal rhythm GI/Abdominal exam: Present: soft, tenderness (Right upper quadrant, and epigastric tenderness.). Absent: distended Extremities exam: Present: normal inspection, full ROM, normal capillary refill. Absent: pedal edema Neurological exam: Present: alert, oriented X3, CN II-XII intact. Absent: motor sensory deficit Psychiatric exam: Present: normal affect, normal mood Skin exam: Present: warm, dry, intact. Absent: cyanosis, diaphoretic Course Vital Signs 05/24/18 05/24/18 12:24 15:23 Temperature 98.1 F 97.1 F L Pulse Rate 87 85 Respiratory 18 18 Rate Blood Pressure 163/91 156/72 O2 Sat by Pulse 98 100 Oximetry Medical Decision Making - Medical Decision Making 67-year-old female presenting with right-sided abdominal pain and flank pain. History is initially concerning for kidney stone or renal colic. Patient appears uncomfortable. Urinalysis is obtained, this is negative for hematuria. Normal CBC and CMP. CT does show left-sided renal calculus which is nonobstructing. No acute findings to explain her pain. On reevaluation, she is very comfortable. Patient will be discharged home, she will return with worsening or changing symptoms. Patient does have pain medication at home. - Lab Data Result diagrams: 05/24/18 13:53 05/24/18 13:45 Lab Results 05/24/18 05/24/18 05/24/18 Range/Units 12:12 13:45 13:53 WBC 5.0 (3.8-10.6) k/uL RBC 4.53 (3.80-5.40) m/uL Hgb 13.6 (11.4-16.0) gm/dL Hct 41.3 (34.0-46.0) % MCV 91.2 (80.0-100.0) fL MCH 30.1 (25.0-35.0) pg MCHC 33.0 (31.0-37.0) g/dL RDW 13.8 (11.5-15.5) % Plt Count 178 (150-450) k/uL Neutrophils % 62 % Lymphocytes % 28 % Monocytes % 5 % Eosinophils % 4 % Basophils % 1 % Neutrophils # 3.1 (1.3-7.7) k/uL Lymphocytes # 1.4 (1.0-4.8) k/uL Monocytes # 0.3 (0-1.0) k/uL Eosinophils # 0.2 (0-0.7) k/uL Basophils # 0.0 (0-0.2) k/uL PT (9.0-12.0) sec INR (<1.2) APTT (22.0-30.0) sec Sodium 140 (137-145) mmol/L Potassium 4.0 (3.5-5.1) mmol/L Chloride 103 (98-107) mmol/L Carbon Dioxide 26 (22-30) mmol/L Anion Gap 11 mmol/L BUN 14 (7-17) mg/dL Creatinine 0.82 (0.52-1.04) mg/dL Est GFR (CKD-EPI)AfAm 87 (>60 ml/min/1.73 sqM) Est GFR (CKD-EPI)NonAf 75 (>60 ml/min/1.73 sqM) Glucose 80 (74-99) mg/dL Calcium 9.3 (8.4-10.2) mg/dL Total Bilirubin 0.4 (0.2-1.3) mg/dL AST 26 (14-36) U/L ALT 31 (9-52) U/L Alkaline Phosphatase 72 (38-126) U/L Troponin I (0.000-0.034) ng/mL Total Protein 6.6 (6.3-8.2) g/dL Albumin 4.4 (3.5-5.0) g/dL Amylase 60 (30-110) U/L Lipase 38 (23-300) U/L Urine Color Colorless Urine Appearance Clear (Clear) Urine pH 6.0 (5.0-8.0) Ur Specific [place] 1.002 (1.001-1.035) Urine Protein Negative (Negative) Urine Glucose (UA) Negative (Negative) Urine Ketones Negative (Negative) Urine Blood Negative (Negative) Urine Nitrite Negative (Negative) Urine Bilirubin Negative (Negative) Urine Urobilinogen <2.0 (<2.0) mg/dL Ur Leukocyte Esterase Negative (Negative) 05/24/18 05/24/18 Range/Units 13:53 13:53 WBC (3.8-10.6) k/uL RBC (3.80-5.40) m/uL Hgb (11.4-16.0) gm/dL Hct (34.0-46.0) % MCV (80.0-100.0) fL MCH (25.0-35.0) pg MCHC (31.0-37.0) g/dL RDW (11.5-15.5) % Plt Count (150-450) k/uL Neutrophils % % Lymphocytes % % Monocytes % % Eosinophils % % Basophils % % Neutrophils # (1.3-7.7) k/uL Lymphocytes # (1.0-4.8) k/uL Monocytes # (0-1.0) k/uL Eosinophils # (0-0.7) k/uL Basophils # (0-0.2) k/uL PT 9.6 (9.0-12.0) sec INR 1.0 (<1.2) APTT 20.1 L (22.0-30.0) sec Sodium (137-145) mmol/L Potassium (3.5-5.1) mmol/L Chloride (98-107) mmol/L Carbon Dioxide (22-30) mmol/L Anion Gap mmol/L BUN (7-17) mg/dL Creatinine (0.52-1.04) mg/dL Est GFR (CKD-EPI)AfAm (>60 ml/min/1.73 sqM) Est GFR (CKD-EPI)NonAf (>60 ml/min/1.73 sqM) Glucose (74-99) mg/dL Calcium (8.4-10.2) mg/dL Total Bilirubin (0.2-1.3) mg/dL AST (14-36) U/L ALT (9-52) U/L Alkaline Phosphatase (38-126) U/L Troponin I <0.012 (0.000-0.034) ng/mL Total Protein (6.3-8.2) g/dL Albumin (3.5-5.0) g/dL Amylase (30-110) U/L Lipase (23-300) U/L Urine Color Urine Appearance (Clear) Urine pH (5.0-8.0) Ur Specific [place] (1.001-1.035) Urine Protein (Negative) Urine Glucose (UA) (Negative) Urine Ketones (Negative) Urine Blood (Negative) Urine Nitrite (Negative) Urine Bilirubin (Negative) Urine Urobilinogen (<2.0) mg/dL Ur Leukocyte Esterase (Negative) Disposition Clinical Impression: Abdominal pain Disposition: HOME SELF-CARE Instructions: Abdominal Pain (ED) Is patient prescribed a controlled substance at d/c from ED?: No Referrals: Sreedhar Gabriel III, MD [Primary Care Provider] - 1-2 days Time of Disposition: 15:43
[2018-05-24] MEDS ORDERED: PANTOPRAZOLE 40 MG/10 ML VIAL IVP STA (13:27)
[2018-05-24] MEDS ORDERED: methylPREDNISolone SOD SUCCI 125 MG/2 ML VIAL IV STA (13:31)
[2018-05-24] MEDS ORDERED: LORATADINE 10 MG TAB PO STA (14:00)
[2018-05-24 14:11] LABS: Basophils % (A) 1 %; Eosinophils # (A) 0.2 k/uL (0-0.7); Eosinophils % (A) 4 %; HCT 41.3 % (34.0-46.0); HGB 13.6 gm/dL (11.4-16.0); Lymphocytes # (A) 1.4 k/uL (1.0-4.8); Lymphocytes % (A) 28 %; MCH 30.1 pg (25.0-35.0); MCV 91.2 fL (80.0-100.0); Mean Platelet Volume 7.7; Monocytes # (A) 0.3 k/uL (0-1.0); Monocytes % (A) 5 %; Neutrophils # (A) 3.1 k/uL (1.3-7.7); Neutrophils % (A) 62 %; Platelet Count 178 k/uL (150-450); RBC 4.53 m/uL (3.80-5.40); RDW 13.8 % (11.5-15.5)
[2018-05-24 14:12] LABS: Albumin 4.4 g/dL (3.5-5.0); Calcium 9.3 mg/dL (8.4-10.2); Total Bilirubin 0.4 mg/dL (0.2-1.3); Total Protein 6.6 g/dL (6.3-8.2)
[2018-05-24 14:24] LABS: Prothrombin Time 9.6 sec (9.0-12.0)
[2018-05-24 14:28] LABS: Partial Thromboplastin Time 20.1 sec (22.0-30.0)
--- NOTE | 2018-05-24 15:11 | CT ---
EXAMINATION TYPE: CT abdomen pelvis wo con DATE OF EXAM: 05/24/2018 COMPARISON: Prior CT 01/27/2017 HISTORY: Right flank pain that radiates into abdomen. CT DLP: 798 mGycm Automated exposure control for dose reduction was used. TECHNIQUE: Helical acquisition of images from the lung bases through the pelvis. FINDINGS: Lack of intravenous contrast could compromise sensitivity. Breast prosthetics noted inciden tally. LUNG BASES: Minimal scarring present in the lingula as on prior exam, minimal dependent atelectatic c hanges are suspected. AORTA: No significant abnormality is appreciated. LIVER/GB: Patient is post cholecystectomy. No evident liver mass. PANCREAS: No significant abnormality is seen. SPLEEN: No significant abnormality is seen. ADRENALS: No significant abnormality is seen. KIDNEYS: There is a punctate left renal calculus is nonobstructive at the lower pole on the left, no evident ureteral calculi bilaterally. REPRODUCTIVE ORGANS: Not seen. URINARY BLADDER: No significant abnormality is seen. BOWEL: No bowel obstruction. The appendix is normal. FREE AIR: No Free Air is visible. ASCITES: None visible. PELVIC ADENOPATHY: None visualized. RETROPERITONEAL ADENOPATHY: No Retroperitoneal Adenopathy visible. OSSEOUS STRUCTURES: Degenerative disc changes noted in lumbar spine. There are associated facet arth ropathy changes at the lower levels. Small lipoma in the right within the musculature immediately ant erior to the hip joint IMPRESSION: NONOBSTRUCTIVE LEFT NEPHROLITHIASIS. Postop changes.
[2018-05-24 15:52] VITALS: BP 134/87; PULSE 87; TEMP 97.4
== END 2018-05-24 15:52 | disposition home or self-care (01) ==
LOC: EC 12:10
DX: R10.11 Right upper quadrant pain (principal); R10.13 Epigastric pain; M54.5 Low back pain; N20.0 Calculus of kidney; K21.9 Gastro-esophageal reflux disease without esophagitis; E03.9 Hypothyroidism, unspecified; F41.9 Anxiety disorder, unspecified; F32.9 Major depressive disorder, single episode, unspecified; Z87.891 Personal history of nicotine dependence; Z85.3 Personal history of malignant neoplasm of breast; Z86.73 Personal history of transient ischemic attack (TIA), and cerebral infarction without residual deficits; Z92.21 Personal history of antineoplastic chemotherapy; Z90.49 Acquired absence of other specified parts of digestive tract; Z90.710 Acquired absence of both cervix and uterus; Z98.51 Tubal ligation status; Z90.13 Acquired absence of bilateral breasts and nipples; Z79.899 Other long term (current) drug therapy; Z88.0 Allergy status to penicillin; Z88.1 Allergy status to other antibiotic agents; Z88.2 Allergy status to sulfonamides; Z88.5 Allergy status to narcotic agent; Z88.8 Allergy status to other drugs, medicaments and biological substances; Z91.013 Allergy to seafood; Z91.041 Radiographic dye allergy status; Z91.048 Other nonmedicinal substance allergy status
CPT/HCPCS: 36415; 80053; 82150; 83690; 84484; 85025; 85610; 85730; 81003; 74176; 99284; 96374; 96375 ×2; 96361 ×2; J2930; J2270; C9113

== ENCOUNTER → 2018-06-03 | Outpatient (CLI) | payer MEDICARE, OTHER ==
--- NOTE | 2018-06-03 15:25 | XR ---
Right foot HISTORY: Pain 3 views of the right foot correlated prior exam 12/07/2014 There is no interval change. Degenerative change present at the metatarsophalangeal joint of the firs t digit, bone mineralization, joint spaces and alignment are stable. No fracture or dislocation. IMPRESSION: Mild osteoarthritis.
== END | disposition home or self-care (01) ==
LOC: RADXRMAIN 12:04
PROVIDERS: ATTEND Family Medicine
DX: M19.071 Primary osteoarthritis, right ankle and foot (principal)

== ENCOUNTER → 2018-06-16 | Outpatient (CLI) | payer MEDICARE, OTHER ==
--- NOTE | 2018-06-17 08:19 | USB ---
Reason for exam: clinical finding. History: Patient is postmenopausal and has history of breast cancer at age 63. Family history of breast cancer in grandmother. Silicone gel implants in both breasts, 2015. Reconstructions of both breasts, 2015. Chemotherapy, 2015. Malignant US RT VAD breast biopsy of the right breast, January 12, 2014. Benign US LT VAD breast biopsy of the left breast, January 12, 2014. Benign US LT VAD breast biopsy of the left breast, January 12, 2014. Mastectomy of both breasts, 2013. Core biopsy of the left breast, 1989. Excisional biopsy of the left breast, 1979. Taking estrogen for 21 years beginning at age 46. Physical Findings: Nurse did not find any significant physical abnormalities on exam. US Breast LT Left complete breast ultrasound includes all four quadrants, the retroareolar region and axilla. Finding demonstrates a 2 x 1 x 3mm oval lesion too small to characterize at 11 o'clock and a 7 x 4 x 18mm oval, hypoechoic lesion at 10 o'clock. Nipple removed. These results were verbally communicated with the patient and result sheet given to the patient on 06/16/18. ASSESSMENT: Probably benign, BI-RAD 3 RECOMMENDATION: Clinical management of the left breast. Manage on a clinical basis with regard to pain.
== END | disposition home or self-care (01) ==
LOC: RADMAMWWP 14:24
PROVIDERS: ATTEND Family Medicine
DX: N64.4 Mastodynia (principal); Z85.3 Personal history of malignant neoplasm of breast

== ENCOUNTER → 2018-09-29 | Outpatient (CLI) | payer MEDICARE, OTHER ==
[2018-09-29 10:44] LABS: Basophils % (A) 1 %; Eosinophils # (A) 0.2 k/uL (0-0.7); Eosinophils % (A) 3 %; HCT 43.3 % (34.0-46.0); HGB 14.1 gm/dL (11.4-16.0); Lymphocytes # (A) 1.2 k/uL (1.0-4.8); Lymphocytes % (A) 20 %; MCH 30.4 pg (25.0-35.0); MCHC 32.5 g/dL (31.0-37.0); MCV 93.5 fL (80.0-100.0); Mean Platelet Volume 6.9; Monocytes # (A) 0.2 k/uL (0-1.0); Monocytes % (A) 4 %; Neutrophils # (A) 4.2 k/uL (1.3-7.7); Neutrophils % (A) 71 %; Platelet Count 195 k/uL (150-450); RBC 4.63 m/uL (3.80-5.40); RDW 13.3 % (11.5-15.5); WBC 5.9 k/uL (3.8-10.6)
[2018-09-29 17:58] LABS: Albumin 4.4 g/dL (3.80-4.90); Albumin/Globulin Ratio 2.75 (1.20-2.10); Calcium 9.2 mg/dL (8.7-10.3); Globulin 1.6 g/dL (2.1-3.7); Potassium 4.7 mmol/L (3.5-5.5); Total Bilirubin 0.3 mg/dL (0.2-1.2)
== END | disposition home or self-care (01) ==
LOC: LABWHC1 10:24
PROVIDERS: ATTEND Nurse Practitioner Family
DX: R10.11 Right upper quadrant pain (principal)
CPT/HCPCS: 36415; 80053; 82150; 83690; 85025

== ENCOUNTER → 2018-11-18 | Day surgery (SDC) | payer MEDICARE, OTHER ==
--- NOTE | 2018-11-18 13:42 | USB ---
Reason for exam: clinical finding. History: Patient is postmenopausal and has history of breast cancer at age 63. Family history of breast cancer in grandmother. Silicone gel implants in both breasts, 2015. Reconstructions of both breasts, 2015. Chemotherapy, 2015. Malignant US RT VAD breast biopsy of the right breast, January 12, 2014. Benign US LT VAD breast biopsy of the left breast, January 12, 2014. Benign US LT VAD breast biopsy of the left breast, January 12, 2014. Mastectomy of both breasts, 2013. Core biopsy of the left breast, 1989. Excisional biopsy of the left breast, 1979. Taking estrogen for 21 years beginning at age 46. Indicated problem(s): large axillary lymph nodes in the right breast. Physical Findings: Nurse Summary: 1cm nodule at axilla (nurse karma). US Breast RT Right complete breast ultrasound includes all four quadrants, the retroareolar region and axilla. Finding demonstrates no cystic or solid lesion seen. These results were verbally communicated with the patient and result sheet given to the patient on 11/18/18. ASSESSMENT: Negative, BI-RAD 1 RECOMMENDATION: Clinical management of the right breast. Manage patient on a clinical basis.
== END ==
LOC: RADUSWWP 11:16
PROVIDERS: ATTEND Internal Medicine Hematology & Oncology
DX: R59.0 Localized enlarged lymph nodes (principal); Z85.3 Personal history of malignant neoplasm of breast; Z53.8 Procedure and treatment not carried out for other reasons

== ENCOUNTER → 2020-12-18 | Outpatient (CLI) | payer MEDICARE ==
[2020-12-18 15:21] LABS: Basophils # (A) 0.1 k/uL (0-0.2); Basophils % (A) 1 %; Eosinophils # (A) 0.1 k/uL (0-0.7); Eosinophils % (A) 2 %; HCT 46.3 % (34.0-46.0); HGB 15.2 gm/dL (11.4-16.0); Lymphocytes # (A) 1.4 k/uL (1.0-4.8); Lymphocytes % (A) 24 %; MCH 30.1 pg (25.0-35.0); MCHC 32.9 g/dL (31.0-37.0); MCV 91.4 fL (80.0-100.0); Monocytes # (A) 0.3 k/uL (0-1.0); Monocytes % (A) 5 %; Neutrophils % (A) 67 %; Platelet Count 208 k/uL (150-450); RBC 5.06 m/uL (3.80-5.40); RDW 12.9 % (11.5-15.5)
[2020-12-18 15:32] LABS: Albumin 4.6 g/dL (3.5-5.0); Potassium 4.5 mmol/L (3.5-5.1); Total Bilirubin 0.9 mg/dL (0.2-1.3); Total Protein 7.4 g/dL (6.3-8.2)
--- NOTE | 2020-12-19 08:15 | MM ---
Reason for exam: screening (asymptomatic). Last mammogram was performed 6 years and 11 months ago. History: Patient is postmenopausal and has history of breast cancer at age 63. Family history of breast cancer in grandmother. Silicone gel implants in both breasts, 2015. Reconstructions of both breasts, 2015. Chemotherapy, 2015. Malignant US RT VAD breast biopsy of the right breast, January 12, 2014. Benign US LT VAD breast biopsy of the left breast, January 12, 2014. Benign US LT VAD breast biopsy of the left breast, January 12, 2014. Mastectomy of both breasts, 2013. Core biopsy of the left breast, 1989. Excisional biopsy of the left breast, 1979. Taking estrogen for 21 years beginning at age 46. Physical Findings: A clinical breast exam by your physician is recommended on an annual basis and results should be correlated with mammographic findings. MG Screening Mammo Implant/CAD Bilateral CC, MLO, and ID view(s) were taken. Prior study comparison: January 12, 2014, left breast digital mammogram. December 19, 2013, CAD bilateral diagnostic mammogram. There are scattered fibroglandular densities. Bilateral implants are intact and difficult to move. No significant changes when compared with prior studies. ASSESSMENT: Benign, BI-RAD 2 RECOMMENDATION: Routine screening mammogram of both breasts in 1 year.
--- NOTE | 2020-12-19 15:56 | BD ---
EXAMINATION TYPE: Axial Bone Density DATE OF EXAM: 12/18/2020 COMPARISON: NONE CLINICAL HISTORY: Height: 60 Weight: 134.4 FRAX RISK QUESTIONS: Alcohol (3 or more units per day): no Family History (Parent hip fracture): no Glucocorticoids (More than 3mos): no (Ex: prednisone, prednisolone, methylprednisolone, dexamethasone, and hydrocortisone). History of Fracture in Adulthood: yes Secondary Osteoporosis: 1. Type 1 Diabetes: no 2. Hyperthyroidism: no 3. Menopause before 45: yes 4. Malnutrition: no 5. Chronic liver disease: no Rheumatoid Arthritis: no Current Tobacco Use: no RISK FACTORS HISTORY OF: Spine Fracture: spine When: 1974 Family History of Osteoporosis: yes Active: no Diet low in dairy products/other sources of calcium: yes Postmenopausal woman: 1996 Lost more than 2 inches in height since high school: yes MEDICATIONS: bladder control meds, restless leg meds, allergy meds Thyroid Medications: thyroid How Lon years Additional History: EXAM MEASUREMENTS: Bone mineral densitometry was performed using the [employer]. Bone mineral density as measured about the Lumbar spine is: ----- L1-L4(G/cm2): 1.020 T Score Values are as follows: ----- L2: -1.3 ----- L3: -1.4 ----- L4: -1.4 ----- L1-L4: -1.4 Bone mineral density : baseline Bone mineral density about the R hip (g/cm2): 0.910 Bone mineral density about the L hip (g/cm2): 0.850 T Score values are as follows: -----R Neck: -0.9 -----L Neck: -1.3 -----R Total: -1.0 -----L Total: -1.2 Bone mineral density : baseline IMPRESSION: Osteopenia (T Score between -2.5 and -1). There is slightly increased risk of fracture and the patient may be considered for treatment. Re-Screen 2-5 years. NOTE: T-SCORE=SD OF THE YOUNG ADULT MEAN.
== END | disposition home or self-care (01) ==
LOC: RADMAMWWP 13:38
PROVIDERS: ATTEND Family Medicine
DX: Z12.31 Encounter for screening mammogram for malignant neoplasm of breast (principal); M85.80 Other specified disorders of bone density and structure, unspecified site; Z79.899 Other long term (current) drug therapy; N39.46 Mixed incontinence; E03.9 Hypothyroidism, unspecified; E78.00 Pure hypercholesterolemia, unspecified
CPT/HCPCS: 77067; 77080; 80053; 80061; 82306; 82607; 84443; 85025

== ENCOUNTER 2021-10-02 23:38 | Emergency (ER) | payer MEDICARE ==
[2021-10-02 23:52] VITALS: BP 143/72; PULSE 85; RESP 20; TEMP 97.9
[2021-10-03] MEDS ORDERED: DIPH,PERTUS(ACELL)TETVAC-LF 0.5 ML VIAL IM ONE (00:07)
--- NOTE | 2021-10-03 00:33 | XR ---
EXAMINATION TYPE: XR foot complete LT DATE OF EXAM: 10/03/2021 COMPARISON: 12/07/2014 HISTORY: Needle in the foot TECHNIQUE: 3 views FINDINGS: There is small linear metallic density projected in the soft tissues of the forefoot at the plantar aspect of the second and third MP joints consistent with a broken needle foreign body. Joint spaces are normal. Metatarsals are intact. The hindfoot is intact. IMPRESSION: Small metallic foreign body. No fracture seen.
--- NOTE | 2021-10-03 00:52 | ED ---
Skin/Abscess/FB HPI - General Chief complaint: Skin/Abscess/Foreign Body Stated complaint: stepped on needle Time Seen by Provider: 10/02/21 23:55 Source: patient, RN notes reviewed, old records reviewed Mode of arrival: wheelchair Limitations: no limitations - History of Present Illness Initial comments: This is a 70-year-old female to the emergency department today. Patient presents today for evaluation of pain pain from stepping on a sewing needle. No Evidence of Infection. Patient Has Minimal Bleeding from the Site but No Other Complaints. was able to walk the needle without difficulty no significant again current bleeding. No other injuries patient can ambulate. No history of diabetes but again multiple medication ALLERGIES MD complaint: foreign body -: hour(s) Tetanus Up to Date: yes Location: R foot Severity: mild Quality: aching Consistency: constant Improves with: none Worsens with: none Context: other (Patient stepped on a sewing needle) Associated symptoms: denies other symptoms - Related Data Home Medications Medication Instructions Recorded Confirmed Pramipexole [Mirapex] 0.5 mg PO HS 04/18/14 10/09/21 Hydrocodone/Acetaminophen 1 tab PO TID PRN 07/03/14 10/09/21 [Hydrocodone/Acetaminophen 10-325] ALPRAZolam [Xanax] 1 mg PO DAILY PRN 09/15/14 10/09/21 Simvastatin [Zocor] 10 mg PO HS 06/20/16 10/09/21 Estradiol 0.25 mg PO HS 04/14/17 10/09/21 Famotidine [Pepcid] 40 mg PO HS 04/14/17 10/09/21 Cholecalciferol (Vitamin D3) 2,000 unit PO HS 05/24/18 10/09/21 [Vitamin D3] Cyanocobalamin (Vitamin B-12) 1,000 mcg PO HS 05/24/18 10/09/21 [Vitamin B-12] Clobetasol Propionate [Temovate 1 applic TOPICAL HS 10/09/21 10/09/21 0.05% Cream] Levothyroxine Sodium 125 mcg PO HS 10/09/21 10/09/21 amLODIPine BESYLATE 5 mg PO HS 10/09/21 10/09/21 Previous Rx's Medication Instructions Recorded Clindamycin [Cleocin] 450 mg PO Q8H 7 Days #21 cap 10/04/21 Allergies Allergy/AdvReac Type Severity Reaction Status Date / Time adhesive Allergy Rash/Hives Verified 10/09/21 14:42 cephalexin monohydrate Allergy Rash/Hives Verified 10/09/21 14:42 [From Keflex] ciprofloxacin [From Cipro] Allergy Rash/Hives Verified 10/09/21 14:42 codeine Allergy Rash/Hives Verified 10/11/21 10:34 diphenhydramine HCl Allergy Rash/Hives Verified 10/11/21 10:34 [From Benadryl] erythromycin base Allergy Rash/Hives Verified 10/11/21 10:34 [Erythromycin Base] eucalyptus Allergy Rash/Hives Verified 10/11/21 10:34 heparin Allergy Rash/Hives Verified 10/11/21 10:34 Influenza Virus Vaccines Allergy Rash/Hives Verified 10/11/21 10:34 Iodinated Contrast Media Allergy Rash/Hives Verified 10/11/21 10:34 [Iodinated Contrast Media - IV Dye] iodine Allergy Rash/Hives Verified 10/11/21 10:34 levofloxacin [From Levaquin] Allergy Rash/Hives Verified 10/11/21 10:34 loperamide HCl Allergy Rash/Hives Verified 10/11/21 10:34 [From Imodium A-D] Penicillins Allergy Rash/Hives Verified 10/11/21 10:34 ranitidine HCl [From Zantac] Allergy Rash/Hives Verified 10/11/21 10:34 ropinirole HCl [From Requip] Allergy Rash/Hives Verified 10/11/21 10:34 shellfish derived Allergy Rash/Hives Verified 10/11/21 10:34 Sulfa (Sulfonamide Allergy Rash/Hives Verified 10/11/21 10:34 Antibiotics) vancomycin Allergy Anaphylaxis Verified 10/11/21 10:34 hydrocodone bitartrate AdvReac Rapid Verified 10/11/21 10:34 [From Vicodin] Heart Rate Review of Systems ROS Statement: Those systems with pertinent positive or pertinent negative responses have been documented in the HPI. ROS Other: All systems not noted in ROS Statement are negative. 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 HX OF MONO., IBS, DJD & BONE SPURS WITH BACK & NECK PAIN. , BAKERS CYSTS., HX OF ANEMIA. , BREAST CANCER 02/2014 WITH 6 MONTHS OF CHEMO., SURGICAL INFECTION WITH REMOVAL OF TISSUE EXPANDERS 09/2014, PALPITATIONS, History of Any Multi-Drug Resistant Organisms: None Reported Past Surgical History: Bladder Surgery, Breast Surgery, Cholecystectomy, Hysterectomy, Orthopedic Surgery, Tonsillectomy, Tubal Ligation Additional Past Surgical History / Comment(s): BLADDER SUSPENSION, LEFT KNEE ARTHROSCOPY, BILATERAL CATARACTS, BILATERAL CARPAL TUNNEL., TUNDE MASTECTOMY /LYMPHECTOMY ON RIGHT SIDE ONLY W/ TISSUE EXPANDERS(). , REMOVAL OF TISSUE EXPANDERS (09/2014), EXPANDERS REINSERTED 02/2015. BREAST IMPLANTS Past Anesthesia/Blood Transfusion Reactions: Previous Problems w/ Anesthesia Additional Past Anesthesia/Blood Transfusion Reaction / Comment(s): BP RUNS LOW AND DIFFICULTY WAKING UP Past Psychological History: Anxiety, Depression Smoking Status: Former smoker Past Alcohol Use History: None Reported Past Drug Use History: None Reported - Past Family History Father Family Medical History: Cancer Additional Family Medical History / Comment(s): CANCER BEHIND ESOPHAGUS. Mother Family Medical History: No Reported History Brother(s) Family Medical History: Cancer Additional Family Medical History / Comment(s): ANAL CANCER General Exam Limitations: no limitations General appearance: alert, in no apparent distress Head exam: Present: atraumatic, normocephalic, normal inspection Eye exam: Present: normal appearance, PERRL, EOMI. Absent: scleral icterus, conjunctival injection, periorbital swelling ENT exam: Present: normal exam, mucous membranes moist Neck exam: Present: normal inspection. Absent: tenderness, meningismus, lymphadenopathy Respiratory exam: Present: normal lung sounds bilaterally. Absent: respiratory distress, wheezes, rales, rhonchi, stridor Cardiovascular Exam: Present: regular rate, normal rhythm, normal heart sounds. Absent: systolic murmur, diastolic murmur, rubs, gallop, clicks GI/Abdominal exam: Present: soft, normal bowel sounds. Absent: distended, tenderness, guarding, rebound, rigid Extremities exam: Present: normal inspection, full ROM, normal capillary refill, other (Puncture wound bottom of right foot). Absent: tenderness, pedal edema, joint swelling, calf tenderness Back exam: Present: normal inspection Neurological exam: Present: alert, oriented X3, CN II-XII intact Psychiatric exam: Present: normal affect, normal mood Skin exam: Present: warm, dry, intact, normal color. Absent: rash Course Vital Signs 10/02/21 23:50 Temperature 97.9 F Pulse Rate 85 Respiratory 20 Rate Blood Pressure 143/72 O2 Sat by Pulse 98 Oximetry - Reevaluation(s) Reevaluation #1: Medical record is reviewed Patient symptoms are improved here in the emergency department Patient is informed of results and questions are answered Medical Decision Making - Medical Decision Making 70 female to the emergency department for evaluation of puncture wound to right foot. Patient is multiple medication ALLERGIES, patient states she has adequate pain control will be discharged without antibiotics currently and patient is okay with that plan. Will return if signs of infection Disposition Clinical Impression: Puncture wound Disposition: HOME SELF-CARE Condition: Good Instructions (If sedation given, give patient instructions): Puncture Wound ( ED) Is patient prescribed a controlled substance at d/c from ED?: No Referrals: Florida Kovacs MD [Primary Care Provider] - 1-2 days
== END 2021-10-03 01:39 | disposition home or self-care (01) ==
LOC: EC 23:38
DX: S91.331A Puncture wound without foreign body, right foot, initial encounter (principal); J44.9 Chronic obstructive pulmonary disease, unspecified; K21.9 Gastro-esophageal reflux disease without esophagitis; E07.9 Disorder of thyroid, unspecified; F41.9 Anxiety disorder, unspecified; F32.A Depression, unspecified; Z88.7 Allergy status to serum and vaccine; Z88.5 Allergy status to narcotic agent; Z88.1 Allergy status to other antibiotic agents; Z88.0 Allergy status to penicillin; Z88.2 Allergy status to sulfonamides; Z86.73 Personal history of transient ischemic attack (TIA), and cerebral infarction without residual deficits; Z85.3 Personal history of malignant neoplasm of breast; Z90.49 Acquired absence of other specified parts of digestive tract; Z90.710 Acquired absence of both cervix and uterus; Z98.51 Tubal ligation status; Z87.891 Personal history of nicotine dependence; W27.3XXA Contact with needle (sewing), initial encounter
CPT/HCPCS: 90471; 90715; 99283

== ENCOUNTER 2021-10-04 15:15 | Emergency (ER) | payer MEDICARE ==
[2021-10-04 16:20] VITALS: BP 172/84; PULSE 98; RESP 20; TEMP 98.6
--- NOTE | 2021-10-04 16:43 | XR ---
EXAMINATION TYPE: XR foot complete LT DATE OF EXAM: 10/04/2021 COMPARISON: NONE HISTORY: Needle foreign body the foot TECHNIQUE: 3 views FINDINGS: I see no fracture nor dislocation. Joint spaces are normal. There is a small linear metalli c density consistent with a broken needle in the soft tissues between the second and third MP joints. This is on the plantar aspect. There is minor spurring at the first MP joint. The toes are intact. I see no focal bone destruction. IMPRESSION: There is needle foreign body without change in position compared to yesterday.
--- NOTE | 2021-10-04 20:14 | ED ---
General Adult HPI - General Chief complaint: Extremity Injury, Lower Stated complaint: L foot swelling/pain Time Seen by Provider: 10/04/21 19:44 Source: patient, RN notes reviewed, old records reviewed Mode of arrival: ambulatory Limitations: no limitations - History of Present Illness Initial comments: Well-appearing 70-year-old female presents to the emergency room with complaints of left foot pain. Patient states that she was seen here Thursday for same. She states that she stepped on a long sewing needle that went through the bottom of her foot out the top. She states her pulled out the needle but a piece broke off inside her foot. She had x-ray done on Thursday evening and they referred her to orthopedics for evaluation. They did give her a tetanus shot at that time. She has multiple ALLERGIES to medications and she opted not to take antibiotics. She states that she is returning to the emergency room today because it is starting to get warm and red and more painful. She does have an appointment with orthopedics on Thursday. -: days(s) (3) Location: left, lower extremity (Foot) Severity scale (1-10): 9 Quality: aching, sharp Consistency: constant Improves with: none Worsens with: other (Ambulation) Associated Symptoms: denies other symptoms - Related Data Home Medications Medication Instructions Recorded Confirmed Pramipexole [Mirapex] 0.5 mg PO HS 04/18/14 11/09/18 buPROPion XL [Wellbutrin XL] 300 mg PO QA 04/18/14 11/09/18 Hydrocodone/Acetaminophen 1 tab PO TID PRN 07/03/14 11/09/18 [Hydrocodone/Acetaminophen 10-325] ALPRAZolam [Xanax] 2 mg PO DAILY PRN 09/15/14 11/09/18 Dexlansoprazole [Dexilant] 60 mg PO HS 06/20/16 11/09/18 Simvastatin [Zocor] 10 mg PO HS 06/20/16 11/09/18 Estradiol 2 mg PO HS 04/14/17 11/09/18 Famotidine [Pepcid] 40 mg PO DAILY 04/14/17 11/09/18 Cholecalciferol (Vitamin D3) 2,000 unit PO DAILY 05/24/18 11/09/18 [Vitamin D3] Cyanocobalamin (Vitamin B-12) 1,000 mcg PO DAILY 05/24/18 11/09/18 [Vitamin B-12] Levothyroxine Sodium [Synthroid] 112 mcg PO DAILY 11/09/18 11/09/18 Previous Rx's Medication Instructions Recorded Clindamycin [Cleocin] 450 mg PO Q8H 7 Days #21 cap 10/04/21 Allergies Allergy/AdvReac Type Severity Reaction Status Date / Time adhesive Allergy Rash/Hives Verified 10/04/21 16:20 cephalexin monohydrate Allergy Rash/Hives Verified 10/04/21 16:20 [From Keflex] ciprofloxacin [From Cipro] Allergy Rash/Hives Verified 10/04/21 16:20 codeine Allergy Rash/Hives Verified 10/04/21 16:20 diphenhydramine HCl Allergy Rash/Hives Verified 10/04/21 16:20 [From Benadryl] erythromycin base Allergy Rash/Hives Verified 10/04/21 16:20 [Erythromycin Base] eucalyptus Allergy Rash/Hives Verified 10/04/21 16:20 heparin Allergy Rash/Hives Verified 10/04/21 16:20 Influenza Virus Vaccines Allergy Rash/Hives Verified 10/04/21 16:20 Iodinated Contrast Media Allergy Rash/Hives Verified 10/04/21 16:20 [Iodinated Contrast Media - IV Dye] iodine Allergy Rash/Hives Verified 10/04/21 16:20 levofloxacin [From Levaquin] Allergy Rash/Hives Verified 10/04/21 16:20 loperamide HCl Allergy Rash/Hives Verified 10/04/21 16:20 [From Imodium A-D] Penicillins Allergy Rash/Hives Verified 10/04/21 16:20 ranitidine HCl [From Zantac] Allergy Rash/Hives Verified 10/04/21 16:20 ropinirole HCl [From Requip] Allergy Rash/Hives Verified 10/04/21 16:20 shellfish derived Allergy Rash/Hives Verified 10/04/21 16:20 Sulfa (Sulfonamide Allergy Rash/Hives Verified 10/04/21 16:20 Antibiotics) vancomycin Allergy Anaphylaxis Verified 10/04/21 16:20 hydrocodone bitartrate AdvReac Rapid Verified 10/04/21 16:20 [From Vicodin] Heart Rate Review of Systems ROS Statement: Those systems with pertinent positive or pertinent negative responses have been documented in the HPI. ROS Other: All systems not noted in ROS Statement are negative. 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 HX OF MONO., IBS, DJD & BONE SPURS WITH BACK & NECK PAIN. , BAKERS CYSTS., HX OF ANEMIA. , BREAST CANCER 02/2014 WITH 6 MONTHS OF CHEMO., SURGICAL INFECTION WITH REMOVAL OF TISSUE EXPANDERS 09/2014, PALPITATIONS, History of Any Multi-Drug Resistant Organisms: None Reported Past Surgical History: Bladder Surgery, Breast Surgery, Cholecystectomy, Hysterectomy, Orthopedic Surgery, Tonsillectomy, Tubal Ligation Additional Past Surgical History / Comment(s): BLADDER SUSPENSION, LEFT KNEE ARTHROSCOPY, BILATERAL CATARACTS, BILATERAL CARPAL TUNNEL., TUNDE MASTECTOMY /LYMPHECTOMY ON RIGHT SIDE ONLY W/ TISSUE EXPANDERS(). , REMOVAL OF TISSUE EXPANDERS (09/2014), EXPANDERS REINSERTED 02/2015. BREAST IMPLANTS Past Anesthesia/Blood Transfusion Reactions: Previous Problems w/ Anesthesia Additional Past Anesthesia/Blood Transfusion Reaction / Comment(s): BP RUNS LOW AND DIFFICULTY WAKING UP Past Psychological History: Anxiety, Depression Smoking Status: Former smoker Past Alcohol Use History: None Reported Past Drug Use History: None Reported - Past Family History Father Family Medical History: Cancer Additional Family Medical History / Comment(s): CANCER BEHIND ESOPHAGUS. Mother Family Medical History: No Reported History Brother(s) Family Medical History: Cancer Additional Family Medical History / Comment(s): ANAL CANCER General Exam Limitations: no limitations General appearance: alert, in no apparent distress Eye exam: Present: normal appearance, EOMI Respiratory exam: Present: normal lung sounds bilaterally. Absent: respiratory distress, wheezes, rales, rhonchi, stridor Cardiovascular Exam: Present: regular rate, normal rhythm, normal heart sounds. Absent: systolic murmur, diastolic murmur, rubs, gallop, clicks GI/Abdominal exam: Present: soft, normal bowel sounds. Absent: distended, tenderness, guarding, rebound, rigid Left Foot/Toe exam: Present: tenderness, swelling, erythema Neurovascular tendon exam: Present: no vascular compromise. Absent: extremity cold to touch, foot drop Neurological exam: Present: alert, oriented X3 Psychiatric exam: Present: normal affect, normal mood Skin exam: Present: warm, dry, intact, normal color. Absent: rash Course Vital Signs 10/04/21 16:18 Temperature 98.6 F Pulse Rate 98 Respiratory 20 Rate Blood Pressure 172/84 O2 Sat by Pulse 99 Oximetry Medical Decision Making - Medical Decision Making Patient states that on Thursday evening she stepped on a long sewing needle that went to the bottom of her foot. Her was able to pull the needle out the piece broke off inside her foot. She came to the emergency room at that time and had an x-ray. There was evidence of a foreign body. She was referred to follow up with orthopedics. She had an updated tetanus shot at that time. She returned for worsening redness and pain. X-rays today show a needle foreign body without change in position from yesterday located between the second and third metaphalangeal joints. Case is discussed with Dr. Mcknight. Patient will be placed on antibiotics and directed to keep her appointment with orthopedics on Thursday. Rest, ice, and elevate while at home. Disposition Clinical Impression: Puncture wound, Foreign body in foot, left Disposition: HOME SELF-CARE Condition: Good Instructions (If sedation given, give patient instructions): Soft Tissue Foreign Body (ED) Additional Instructions: Take antibiotics as prescribed. Return if any new or concerning symptoms. Follow-up with your primary care doctor next week and orthopedics on Thursday for continuation of care. Prescriptions: Clindamycin [Cleocin] 450 mg PO Q8H 7 Days #21 cap Is patient prescribed a controlled substance at d/c from ED?: No Referrals: [place] Kovacs MD [Primary Care Provider] - 1-2 days Honorio Walls MD [Medical Doctor] - 1-2 days Time of Disposition: 20:14
== END 2021-10-04 20:28 | disposition home or self-care (01) ==
LOC: EC 15:15
DX: S91.342A Puncture wound with foreign body, left foot, initial encounter (principal); J44.9 Chronic obstructive pulmonary disease, unspecified; E03.9 Hypothyroidism, unspecified; F41.9 Anxiety disorder, unspecified; F32.9 Major depressive disorder, single episode, unspecified; K21.9 Gastro-esophageal reflux disease without esophagitis; Z85.3 Personal history of malignant neoplasm of breast; Z86.73 Personal history of transient ischemic attack (TIA), and cerebral infarction without residual deficits; Z87.891 Personal history of nicotine dependence; Z88.0 Allergy status to penicillin; Z88.1 Allergy status to other antibiotic agents; Z88.2 Allergy status to sulfonamides; Z88.5 Allergy status to narcotic agent; Z88.8 Allergy status to other drugs, medicaments and biological substances; Z79.890 Hormone replacement therapy; Z79.899 Other long term (current) drug therapy; W27.3XXA Contact with needle (sewing), initial encounter
CPT/HCPCS: 99283

== ENCOUNTER 2021-10-11 10:12 | Day surgery (SDC) | payer MEDICARE ==
[2021-10-09 15:45] VITALS: BMI 25.9
[~2021-10-11 10:12] MED LIST: DEXAMETHASONE SOD PHOSPHATE 4 MG/ML 1 ML VIAL IV ONE; LACTATED RINGERS 1,000 ML IV SCH; MIDAZOLAM 2 MG/2 ML VIAL IV PRN; ONDANSETRON 4 MG/2 ML VIAL IVP ONE; Pre Op ABX Message 1 EACH MISC MISCELLANE ONE; fentaNYL (PF) 50 MCG/ML 2 ML AMP IV PRN
[2021-10-11 10:43] VITALS: RESP 16
[2021-10-11] MEDS ORDERED: CLINDAMYCIN 600 MG in DEXTROSE 5% IN WATER 50 ML IVPB STA ×2 (11:04)
[2021-10-11] MEDS ORDERED: MIDAZOLAM 2 MG/2 ML VIAL ONE (11:30)
[2021-10-11] MEDS ORDERED: fentaNYL (PF) 50 MCG/ML 2 ML AMP ONE (11:30)
[2021-10-11] MEDS ORDERED: PROPOFOL 10 MG/ML 20 ML VIAL IV ONE (11:30)
[2021-10-11] MEDS ORDERED: LIDOCAINE 1% INJ 10MG/ML (20 ML MDV) ONE (11:30)
[2021-10-11] MEDS ORDERED: BUPIVACAINE (PF) 0.25% 30 ML VIAL SQ ONE ×2 (11:53)
[2021-10-11 12:20] VITALS: TEMP 97
[2021-10-11] MEDS ORDERED: HYDROmorphone 0.5 MG/0.5 ML SYRINGE IVP ONE ×2 (12:20→12:51)
--- NOTE | 2021-10-11 12:24 | P.OP ---
Date of Procedure: 10/11/21 Preoperative Diagnosis: Retained foreign body (deep) left foot Postoperative Diagnosis: Same Procedure(s) Performed: Removal of deep foreign body left foot Implants: None Anesthesia: MICHA Surgeon: Arie Parker Estimated Blood Loss (ml): 1 Pathology: none sent Condition: stable Disposition: PACU Description of Procedure: The patient was brought into the operating room and placed on table supine position. Timeout was taken to confirm correct patient identifiers, correct site of surgery, and correct procedure. When all staff in the room in agreement with the timeout the patient was induced and placed under general anesthesia. A well-padded tourniquet was placed on the left ankle. 10 mL 0.25% Marcaine was injected as a midfoot block. And then the left foot was prepped and draped in usual manner. The foot was exsanguinated with an Esmarch bandage and the tourniquet inflated to 250 motors mercury. Utilizing a metallic pointer fluoroscopy was used to centralize the location of the foreign body. Incision was made over the area between the second and third metatarsal heads. The incision was deepened down to the subcutaneous layer careful to identify, avoid, and retract any neurovascular structures and cauterize any bleeding vessels. Dissection was continued down to the interspace between the second and third metatarsals. There is no evidence of the foreign body in this area. The transverse intermetatarsal ligament was transected and further dissection down deep revealed the very small metallic foreign body. It was grasped and able to be removed intact. Fluoroscopy confirmed complete removal of the object. The area was also explored for any other foreign body specifically sewing thread that may have been on the needle at the time of the injury. However after thorough exploration none was found. There is also no evidence of any purulence or abscess formation. The wound is thoroughly irrigated with sterile saline. Subcutaneous closure was completed with 4-0 Monocryl. And skin closure done with 3-0 nylon. Nonadherent gauze and a bulky dry dressing applied to left foot. The tourniquet was released and capillary refill return to all digits of the left foot. Anesthesia was reversed and the patient went to recovery vital signs stable
[2021-10-11 14:17] VITALS: BP 126/79; PULSE 68
== END 2021-10-11 14:27 | disposition home or self-care (01) ==
LOC: OR 10:12
PROVIDERS: ATTEND Podiatrist
DX: M79.5 Residual foreign body in soft tissue (principal); I10 Essential (primary) hypertension; J44.9 Chronic obstructive pulmonary disease, unspecified; K21.9 Gastro-esophageal reflux disease without esophagitis; E07.9 Disorder of thyroid, unspecified; E78.5 Hyperlipidemia, unspecified; Z88.5 Allergy status to narcotic agent; Z79.899 Other long term (current) drug therapy; Z88.0 Allergy status to penicillin; Z88.2 Allergy status to sulfonamides; Z88.8 Allergy status to other drugs, medicaments and biological substances; Z88.1 Allergy status to other antibiotic agents; Z91.041 Radiographic dye allergy status; Z87.891 Personal history of nicotine dependence; Z86.73 Personal history of transient ischemic attack (TIA), and cerebral infarction without residual deficits
CPT/HCPCS: 28192; J2250; J1100; J2405; J2001; J3010; J2704; J1170

== ENCOUNTER → 2022-02-21 | Outpatient (CLI) | payer MEDICARE ==
--- NOTE | 2022-02-22 03:35 | MR ---
EXAMINATION TYPE: MR foot LT wo/w con DATE OF EXAM: 02/21/2022 COMPARISON: None HISTORY: Stepped on needle that went through foot near 2nd metatarsal on Sep 2021. Foot pain, difficu lty moving toes, concern for osteomyelitis. CONTRAST: Standard multiplanar, multisequence MRI departmental protocol images were obtained without contrast a nd with 6 mL intravenous Gadavist gadolinium contrast. The Achilles tendon is intact. Medial and lateral flexor tendons of the foot appear intact. The metat arsals are intact. The toes appear intact. No evidence of focal bone destruction. There is mild subcu taneous edema around the entire foot and ankle. The bones of the midfoot appear intact. IMPRESSION: Minimal subcutaneous edema on the dorsum of the foot and around the ankle. No fracture. No evidence of osteomyelitis. No evidence of a soft tissue mass.
== END | disposition home or self-care (01) ==
LOC: RADMRIMAIN 18:15
PROVIDERS: ATTEND Podiatrist Foot & Ankle Surgery
DX: R60.0 Localized edema (principal)
CPT/HCPCS: 73720; A9585

== ENCOUNTER → 2022-08-28 | Outpatient (CLI) | payer MEDICARE ==
--- NOTE | 2022-08-28 11:49 | US ---
EXAMINATION TYPE: US abdomen complete DATE OF EXAM: 08/28/2022 COMPARISON: Abdominal ultrasound 10/06/2018 CLINICAL HISTORY: K59.00 CONSTIPATION R10.84 ABD PAIN R19.7 DIARRHEA. TECHNIQUE: Multiple sonographic images of the abdomen are obtained. FINDINGS: EXAM MEASUREMENTS: Liver Length: 15.4 cm Gallbladder Wall: Surgically absent cm CBD: 0.95 cm previously 1.1 cm. Spleen: 9.3 cm Right Kidney: 10.0 x 4.5 x 4.5 cm Left Kidney: 9.2 x 4.5 x 3.5 cm Pancreas: wnl Liver: wnl . No cystic or solid mass is identified. No intrahepatic biliary ductal dilatation. Gallbladder: Surgically absent CBD: Prominent but stable and not unexpected in the setting of cholecystectomy. Spleen: wnl Right Kidney: wnl . No shadowing calculi, hydronephrosis, or solid contour deforming mass. Left Kidney: Inferior pole echogenic focus with shadowing and twinkle artifact 0.44 x 0.46 x 0.31cm . No hydronephrosis or solid contour deforming mass. Upper IVC: wnl Abd Aorta: Mild atherosclerotic changes. No abdominal aortic aneurysm. IMPRESSION: 1. No acute process. 2. Nonobstructive left renal calculus.
== END | disposition home or self-care (01) ==
LOC: RADUSWWP 11:06
PROVIDERS: ATTEND Family Medicine
DX: N20.0 Calculus of kidney (principal); R19.7 Diarrhea, unspecified; R63.0 Anorexia; R63.4 Abnormal weight loss; Z85.3 Personal history of malignant neoplasm of breast
CPT/HCPCS: 76700

== ENCOUNTER → 2022-10-22 | Outpatient (CLI) | payer MEDICARE ==
--- NOTE | 2022-10-22 09:25 | XR ---
EXAMINATION TYPE: XR cervical spine 3 views DATE OF EXAM: 10/22/2022 Comparison: None Clinical History: 71-year-old female M54.2 Cervicalgia Findings: Normal odontoid view. Uncovertebral joint and facet arthropathy mid to lower cervical spine. There is moderate disc/endplate degenerative change particularly at C5-C7 levels. Degenerative grade 1 vee listhesis at C4-C5 and C7-T1. Remaining alignment is maintained. No predental space widening or preve rtebral soft tissue swelling. Degenerative change of the C1 dens articulation. Impression: Moderate spondylotic changes especially C5-C7 levels. Degenerative grade 1 anterolisthesis C4-C5 and C7-T1.
== END | disposition home or self-care (01) ==
LOC: RADXRMAIN 07:34
PROVIDERS: ATTEND Family Medicine
DX: M47.812 Spondylosis without myelopathy or radiculopathy, cervical region (principal); M43.12 Spondylolisthesis, cervical region
CPT/HCPCS: 72040

== ENCOUNTER 2022-11-09 02:59 | Emergency (ER) | payer MEDICARE ==
[2022-11-09 03:12] VITALS: TEMP 98.4
--- NOTE | 2022-11-09 03:46 | ED ---
URI HPI - General Chief Complaint: Upper Respiratory Infection Stated Complaint: Sore throat, LT earache Time Seen by Provider: 11/09/22 03:02 Source: family Mode of arrival: ambulatory Limitations: no limitations - Related Data Home Medications Medication Instructions Recorded Confirmed Pramipexole [Mirapex] 0.5 mg PO HS 04/18/14 10/09/21 Hydrocodone/Acetaminophen 1 tab PO TID PRN 07/03/14 10/09/21 [Hydrocodone/Acetaminophen 10-325] ALPRAZolam [Xanax] 1 mg PO DAILY PRN 09/15/14 10/09/21 Simvastatin [Zocor] 10 mg PO HS 06/20/16 10/09/21 Famotidine [Pepcid] 40 mg PO HS 04/14/17 10/09/21 estradioL [Estradiol] 0.25 mg PO HS 04/14/17 10/09/21 Cholecalciferol (Vitamin D3) 2,000 unit PO HS 05/24/18 10/09/21 [Vitamin D3] Cyanocobalamin (Vitamin B-12) 1,000 mcg PO HS 05/24/18 10/09/21 [Vitamin B-12] Clobetasol Propionate [Temovate 1 applic TOPICAL HS 10/09/21 10/09/21 0.05% Cream] Levothyroxine Sodium 125 mcg PO HS 10/09/21 10/09/21 amLODIPine BESYLATE 5 mg PO HS 10/09/21 10/09/21 Previous Rx's Medication Instructions Recorded Clindamycin [Cleocin] 450 mg PO Q8H 7 Days #21 cap 10/04/21 Amoxic-Pot Clav 875-125Mg 1 tab PO Q12HR #20 tablet 11/09/22 [Augmentin 875-125] Allergies Allergy/AdvReac Type Severity Reaction Status Date / Time adhesive Allergy Rash/Hives Verified 11/09/22 03:12 cephalexin monohydrate Allergy Rash/Hives Verified 11/09/22 03:12 [From Keflex] ciprofloxacin [From Cipro] Allergy Rash/Hives Verified 11/09/22 03:12 codeine Allergy Rash/Hives Verified 11/09/22 03:12 diphenhydramine HCl Allergy Rash/Hives Verified 11/09/22 03:12 [From Benadryl] erythromycin base Allergy Rash/Hives Verified 11/09/22 03:12 [Erythromycin Base] eucalyptus Allergy Rash/Hives Verified 11/09/22 03:12 heparin Allergy Rash/Hives Verified 11/09/22 03:12 Influenza Virus Vaccines Allergy Rash/Hives Verified 11/09/22 03:12 Iodinated Contrast Media Allergy Rash/Hives Verified 11/09/22 03:12 [Iodinated Contrast Media - IV Dye] iodine Allergy Rash/Hives Verified 11/09/22 03:12 levofloxacin [From Levaquin] Allergy Rash/Hives Verified 11/09/22 03:12 loperamide HCl Allergy Rash/Hives Verified 11/09/22 03:12 [From Imodium A-D] Penicillins Allergy Rash/Hives Verified 11/09/22 03:12 ranitidine HCl [From Zantac] Allergy Rash/Hives Verified 11/09/22 03:12 ropinirole HCl [From Requip] Allergy Rash/Hives Verified 11/09/22 03:12 shellfish derived Allergy Rash/Hives Verified 11/09/22 03:12 Sulfa (Sulfonamide Allergy Rash/Hives Verified 11/09/22 03:12 Antibiotics) vancomycin Allergy Anaphylaxis Verified 11/09/22 03:12 hydrocodone bitartrate AdvReac Rapid Verified 11/09/22 03:12 [From Vicodin] Heart Rate Review of Systems ROS Statement: Those systems with pertinent positive or pertinent negative responses have been documented in the HPI. ROS Other: All systems not noted in ROS Statement are negative. Past Medical History Past Medical History: Cancer, COPD, CVA/TIA, GERD/Reflux, Memory Impairment, Musculoskeletal Disorder, Thyroid Disorder, Vascular Disorder Additional Past Medical History / Comment(s): HYPOTHYROID, HX OF TIA DUE TO HEAD TRAUMA, Restless Leg Syndrome, MIGRAINES, NEUROPATHY, PERIPHERAL ARTERY DISEASE, HX OF PNEUMONIA & PLEURISY, HX OF MONO, IBS, DJD & BONE SPURS WITH BACK & NECK PAIN, BAKERS CYSTS, HX OF ANEMIA, BREAST CANCER 02/2014 WITH 6 MONTHS OF CHEMO, SURGICAL INFECTION WITH REMOVAL OF TISSUE EXPANDERS 09/2014, PALPITATIONS. History of Any Multi-Drug Resistant Organisms: None Reported Past Surgical History: Bladder Surgery, Breast Surgery, Cholecystectomy, Hysterectomy, Orthopedic Surgery, Tonsillectomy, Tubal Ligation Additional Past Surgical History / Comment(s): BLADDER SUSPENSION, LEFT KNEE ARTHROSCOPY, BILATERAL CATARACTS, BILATERAL CARPAL TUNNEL, BILATERAL MASTECTOMY /LYMPHECTOMY ON RIGHT SIDE ONLY W/ TISSUE EXPANDERS(). REMOVAL OF TISSUE EXPANDERS (09/2014), EXPANDERS REINSERTED 02/2015. BREAST IMPLANTS. Past Anesthesia/Blood Transfusion Reactions: Previous Problems w/ Anesthesia Additional Past Anesthesia/Blood Transfusion Reaction / Comment(s): BP RUNS LOW AND DIFFICULTY WAKING UP. Difficult IV Start. Past Psychological History: Anxiety, Depression Smoking Status: Former smoker Past Alcohol Use History: None Reported Past Drug Use History: None Reported - Past Family History Father Family Medical History: Cancer Additional Family Medical History / Comment(s): CANCER BEHIND ESOPHAGUS. Mother Family Medical History: No Reported History Brother(s) Family Medical History: Cancer Additional Family Medical History / Comment(s): ANAL CANCER General Exam Limitations: no limitations Course Vital Signs 11/09/22 11/09/22 03:10 05:29 Temperature 98.4 F Pulse Rate 104 H 92 Respiratory 20 18 Rate Blood Pressure 151/85 165/83 O2 Sat by Pulse 98 96 Oximetry - Reevaluation(s) Reevaluation #1: 11/09/22 medical record is reviewed Patient symptoms are improved here in the ER Patient informed of results and questions answered Medical Decision Making - Lab Data Lab Results 11/09/22 Range/Units 03:13 Influenza Type A (PCR) Not Detected (Not Detectd) Influenza Type B (PCR) Not Detected (Not Detectd) RSV (PCR) Not Detected (Not Detectd) SARS-CoV-2 (PCR) Not Detected (Not Detectd) Disposition Clinical Impression: Left ear pain, Left otitis media, Left otitis externa Disposition: HOME SELF-CARE Condition: Good Instructions (If sedation given, give patient instructions): Ear Infection (ED) Prescriptions: Amoxic-Pot Clav 875-125Mg [Augmentin 875-125] 1 tab PO Q12HR #20 tablet Is patient prescribed a controlled substance at d/c from ED?: No Referrals: Florida Kovacs MD [Primary Care Provider] - 1-2 days Time of Disposition: 05:00
[2022-11-09] MEDS ORDERED: AMOXIC-POT CLAV 875-125MG 1 EACH TAB PO STA (04:50)
[2022-11-09] MEDS ORDERED: LORATADINE-PSEUDOEPH 5-120 MG 1 EACH TAB.ER.12H PO STA (04:50)
[2022-11-09] MEDS ORDERED: OFLOXACIN 0.3% OPHTH DROPS 5 ML BOTTLE LEFT EAR STA (04:51)
[2022-11-09 06:09] VITALS: BP 165/83; PULSE 92; RESP 18
== END 2022-11-09 05:30 | disposition home or self-care (01) ==
LOC: EC 02:59
DX: H66.92 Otitis media, unspecified, left ear (principal); H60.92 Unspecified otitis externa, left ear; J44.9 Chronic obstructive pulmonary disease, unspecified; G45.9 Transient cerebral ischemic attack, unspecified; K21.9 Gastro-esophageal reflux disease without esophagitis; E07.9 Disorder of thyroid, unspecified; F41.9 Anxiety disorder, unspecified; F32.A Depression, unspecified; Z87.891 Personal history of nicotine dependence; Z79.890 Hormone replacement therapy; Z79.899 Other long term (current) drug therapy; Z88.1 Allergy status to other antibiotic agents; Z88.5 Allergy status to narcotic agent; Z88.8 Allergy status to other drugs, medicaments and biological substances; Z88.2 Allergy status to sulfonamides; Z88.0 Allergy status to penicillin; Z91.041 Radiographic dye allergy status; Z91.013 Allergy to seafood; Z20.822 Contact with and (suspected) exposure to COVID-19
CPT/HCPCS: 87636; 99283

== ENCOUNTER → 2022-11-28 | Outpatient (CLI) | payer MEDICARE ==
--- NOTE | 2022-11-30 22:02 | BMR ---
EXAMINATION TYPE: MR breast BILAT wo/w con DATE OF EXAM: 11/28/2022 COMPARISON: Prior bilateral breast MRI February 02, 2014. HISTORY: Breast implant status, history of breast cancer with double mastectomy 2013. TECHNIQUE: A series of fat and water weighted images in the long and short axis views of both breasts are obtained in conjunction with dynamic contrast MRI with subtraction technique. The patient was i njected with 6 mL intravenous Gadavist gadolinium contrast. Three-dimensional and additional postpr ocessing imaging is created on independent workstation and reviewed during official interpretation of this study. REFERENCE: Reference FINDINGS: Total mastectomy changes with bilateral silicone breast implants is now present. There is no free silicone to suggest extracapsular rupture. Breast implant sizes are symmetric. There is no suspicious infolding or lobulated contour to the implants noted. Some benign appearing bilater al axillary lymph nodes are present. Postcontrast images show minimal symmetric background enhancemen t. There is no pathologic enhancement or enhancing masses identified bilaterally. No suspicious skin thickening is seen. The chest wall appears intact. IMPRESSION: No MRI evidence for invasive malignancy in either breast. No MRI evidence for breast impl ant rupture bilaterally. BI-RADS 2 benign findings.
== END | disposition home or self-care (01) ==
LOC: RADMRIMAIN 18:49
PROVIDERS: ATTEND Family Medicine
DX: Z98.82 Breast implant status (principal); Z85.3 Personal history of malignant neoplasm of breast; Z90.13 Acquired absence of bilateral breasts and nipples
CPT/HCPCS: C8908; A9585; 77049

== ENCOUNTER → 2023-03-24 | Outpatient (CLI) | payer MEDICARE ==
--- NOTE | 2023-03-24 20:57 | MR ---
EXAMINATION TYPE: MR brain wo/w con DATE OF EXAM: 03/24/2023 COMPARISON: Prior MRI brain 2017. HISTORY: Dizziness, headaches, vision blacks out TECHNIQUE: Multiplanar, multisequence images of the brain and brainstem is performed without and with IV contras t, utilizing 7 mL intravenous Gadavist . FINDINGS: Diffusion weighted images demonstrate no evidence of a recent infarct or other diffusion ab normality. There is mild ventricular and sulcal prominence. Occasional scattered tiny focus of T2 hy perintensity is seen throughout the white matter bilaterally. Approximately 10-15 small scattered les ions are seen on current study slightly more prominent from prior MRI. T2 Star weighted images show s mall focus of diminished signal in the right aspect of the superior talon image 185 series 602 corresp onding to subtle area of vague enhancement axial image 10 having similar appearance to prior MRI. Sub tle vascular malformation or suspected tiny AVM is once again suspected. Midline structures demonstrate normal morphology. The craniocervical junction appears within normal limits. Post contrast images demonstrate no abnormal enhancement. The dural venous sinuses appear pa tent. The visualized sinuses are clear and the globes are intact. IMPRESSION: 1. Mild diffuse age-related cerebral atrophy and nonspecific white matter changes favor product of ch ronic small vessel ischemic change. Some interval progression in the latter noted from prior MRI. 2. New increased fluid signal left mastoid air cells raises concern for left sided mastoiditis, corre late clinically and with point tenderness on the left. 3. Probable vascular malformation or subtle AVM right talon similar in appearance to prior MRI.
== END | disposition home or self-care (01) ==
LOC: RADMRIMAIN 20:00
PROVIDERS: ATTEND Family Medicine
DX: G31.1 Senile degeneration of brain, not elsewhere classified (principal); R90.82 White matter disease, unspecified; R42 Dizziness and giddiness; I67.82 Cerebral ischemia
CPT/HCPCS: 70553; A9585

== ENCOUNTER 2024-03-08 08:59 | Day surgery (SDC) | payer MEDICARE, OTHER ==
[2024-03-04 10:50] VITALS: BMI 26.7
[~2024-03-08 08:59] MED LIST changes: -DEXAMETHASONE SOD PHOSPHATE 4 MG/ML 1 ML VIAL IV ONE; -LACTATED RINGERS 1,000 ML IV SCH; +LIDOCAINE 1% (10MG/ML) FOR IV START INTRADERMA PRN; -MIDAZOLAM 2 MG/2 ML VIAL IV PRN; -ONDANSETRON 4 MG/2 ML VIAL IVP ONE; -Pre Op ABX Message 1 EACH MISC MISCELLANE ONE; -fentaNYL (PF) 50 MCG/ML 2 ML AMP IV PRN
[2024-03-08] MEDS: LACTATED RINGERS 1,000 ML IV SCH (09:51)
[2024-03-08 10:10] VITALS: RESP 16; TEMP 97.2
[2024-03-08] MEDS ORDERED: PROPOFOL 10 MG/ML 20 ML VIAL IV ONE (10:13)
--- NOTE | 2024-03-08 10:22 | P.PCN ---
Date of Procedure: 03/08/24 Procedure(s) Performed: Preoperative Dx: GERD, chest pain Postoperative Dx: Minimal gastritis Procedure: EGD with Bx Anesthesia: Sedation Endoscopist: Dr. Kovacs Specimens: Antrum Endoscopic Procedure: The patient was on the endoscopy table in the left decubitus position. The Olympus gastroscope was inserted into the oropharynx and passed under direct visualization to the region of the third portion of the duodenum. From that point the scope was slowly withdrawn inspecting all surfaces carefully. There were no neoplastic inflammatory or polypoid lesions throughout the duodenum. The pylorus was widely patent. The stomach was carefully inspected. There was minimal gastritis present. A biopsy of the antrum took place to rule out H. pylori. Retroflexion revealed a normal hiatus. The esophagus was then carefully examined. There were no neoplastic inflammatory or polypoid lesions throughout the visualized esophagus. The patient was then taken to the recovery room in stable condition per anesthesia guidelines. Recommendations: Continue antiacids. Await breast MRI to evaluate for implant rupture.
[2024-03-08 10:57] VITALS: BP 130/60; PULSE 79
== END 2024-03-08 10:56 | disposition home or self-care (01) ==
LOC: ORWHC2ENDO 08:59
PROVIDERS: ATTEND Surgery
DX: K21.9 Gastro-esophageal reflux disease without esophagitis (principal); I10 Essential (primary) hypertension; E78.5 Hyperlipidemia, unspecified; E07.9 Disorder of thyroid, unspecified; I73.9 Peripheral vascular disease, unspecified; G62.9 Polyneuropathy, unspecified; Z85.3 Personal history of malignant neoplasm of breast; Z79.899 Other long term (current) drug therapy; Z90.49 Acquired absence of other specified parts of digestive tract; Z79.890 Hormone replacement therapy; Z88.8 Allergy status to other drugs, medicaments and biological substances; Z86.73 Personal history of transient ischemic attack (TIA), and cerebral infarction without residual deficits
CPT/HCPCS: 88305; 43239; J2704

== ENCOUNTER 2024-03-14 11:07 | Emergency (ER) | payer MEDICARE, OTHER ==
--- NOTE | 2024-03-14 11:35 | ED ---
Extremity Problem HPI - General Chief complaint: Extremity Problem,Nontraumatic Stated complaint: leg swelling redness Time Seen by Provider: 03/14/24 11:24 Source: patient, RN notes reviewed Mode of arrival: ambulatory Limitations: no limitations - History of Present Illness Initial comments: 73-year-old female presents emergency department chief complaint of right leg swelling. Patient states he woke up this morning states that she had discomfort and swelling she was seen by her PCP and sent here for evaluation. She denies any trauma she states she has arthritis in her foot and she always has some discomfort. She denies chest pain shortness of breath no history of blood clots. - Related Data Home Medications Medication Instructions Recorded Confirmed Pramipexole [Mirapex] 0.5 mg PO DAILY 04/18/14 03/04/24 Hydrocodone/Acetaminophen 1 tab PO TID PRN 07/03/14 03/08/24 [Hydrocodone/Acetaminophen 10-325] Simvastatin [Zocor] 10 mg PO DAILY 06/20/16 03/04/24 estradioL [Estradiol] 1 mg PO DAILY 04/14/17 03/04/24 Levothyroxine Sodium 88 mcg PO DAILY 10/09/21 03/04/24 amLODIPine BESYLATE 5 mg PO DAILY 10/09/21 03/04/24 Pantoprazole [Protonix] 40 mg PO DAILY 01/01/23 03/04/24 Allergies Allergy/AdvReac Type Severity Reaction Status Date / Time adhesive Allergy Rash/Hives Verified 03/14/24 11:10 cephalexin monohydrate Allergy Rash/Hives Verified 03/14/24 11:10 [From Keflex] ciprofloxacin [From Cipro] Allergy Rash/Hives Verified 03/14/24 11:10 codeine Allergy Rash/Hives Verified 03/14/24 11:10 diphenhydramine HCl Allergy Rash/Hives Verified 03/14/24 11:10 [From Benadryl] erythromycin base Allergy Rash/Hives Verified 03/14/24 11:10 [Erythromycin Base] eucalyptus Allergy Rash/Hives Verified 03/14/24 11:10 heparin Allergy Rash/Hives Verified 03/14/24 11:10 Influenza Virus Vaccines Allergy Rash/Hives Verified 03/14/24 11:10 Iodinated Contrast Media Allergy Rash/Hives Verified 03/14/24 11:10 [Iodinated Contrast Media - IV Dye] iodine Allergy Rash/Hives Verified 03/14/24 11:10 levofloxacin [From Levaquin] Allergy Rash/Hives Verified 03/14/24 11:10 loperamide HCl Allergy Rash/Hives Verified 03/14/24 11:10 [From Imodium A-D] Penicillins Allergy Rash/Hives Verified 03/14/24 11:10 ranitidine HCl [From Zantac] Allergy Rash/Hives Verified 03/14/24 11:10 ropinirole HCl [From Requip] Allergy Rash/Hives Verified 03/14/24 11:10 shellfish derived Allergy Rash/Hives Verified 03/14/24 11:10 Sulfa (Sulfonamide Allergy Rash/Hives Verified 03/14/24 11:10 Antibiotics) vancomycin Allergy Anaphylaxis Verified 03/14/24 11:10 hydrocodone bitartrate AdvReac Rapid Verified 03/14/24 11:10 [From Vicodin] Heart Rate Review of Systems ROS Statement: Those systems with pertinent positive or pertinent negative responses have been documented in the HPI. ROS Other: All systems not noted in ROS Statement are negative. Past Medical History Past Medical History: Cancer, COPD, CVA/TIA, GERD/Reflux, Memory Impairment, Musculoskeletal Disorder, Thyroid Disorder, Vascular Disorder Additional Past Medical History / Comment(s): HYPOTHYROID, HX OF TIA DUE TO HEAD TRAUMA, Restless Leg Syndrome, MIGRAINES, NEUROPATHY, PERIPHERAL ARTERY DISEASE, HX OF PNEUMONIA & PLEURISY, HX OF MONO, IBS, DJD & BONE SPURS WITH BACK & NECK PAIN, BAKERS CYSTS, HX OF ANEMIA, BREAST CANCER 02/2014 WITH 6 MONTHS OF CHEMO, SURGICAL INFECTION WITH REMOVAL OF TISSUE EXPANDERS 09/2014, PALPITATIONS. History of Any Multi-Drug Resistant Organisms: None Reported Past Surgical History: Bladder Surgery, Breast Surgery, Cholecystectomy, Hysterectomy, Orthopedic Surgery, Tonsillectomy, Tubal Ligation Additional Past Surgical History / Comment(s): BLADDER SUSPENSION, LEFT KNEE ARTHROSCOPY, BILATERAL CATARACTS, BILATERAL CARPAL TUNNEL, BILATERAL MASTECTOMY /LYMPHECTOMY ON RIGHT SIDE ONLY W/ TISSUE EXPANDERS(-2013). REMOVAL OF TISSUE EXPANDERS (09/2014), EXPANDERS REINSERTED 02/2015. BREAST IMPLANTS. Past Anesthesia/Blood Transfusion Reactions: Previous Problems w/ Anesthesia Additional Past Anesthesia/Blood Transfusion Reaction / Comment(s): BP RUNS LOW AND DIFFICULTY WAKING UP. Difficult IV Start. Past Psychological History: Anxiety, Depression Smoking Status: Former smoker Past Alcohol Use History: None Reported Past Drug Use History: None Reported - Past Family History Father Family Medical History: Cancer Additional Family Medical History / Comment(s): CANCER BEHIND ESOPHAGUS. Mother Family Medical History: No Reported History Additional Family Medical History / Comment(s): alcoholic Brother(s) Family Medical History: Cancer Additional Family Medical History / Comment(s): ANAL CANCER General Exam Limitations: no limitations General appearance: alert, in no apparent distress Head exam: Present: atraumatic, normocephalic, normal inspection Respiratory exam: Present: normal lung sounds bilaterally. Absent: respiratory distress, wheezes, rales, rhonchi, stridor Cardiovascular Exam: Present: regular rate, normal rhythm, normal heart sounds. Absent: systolic murmur, diastolic murmur, rubs, gallop, clicks Extremities exam: Present: other (Right leg there is mild swelling noticed, minimal tenderness neurovascular intact full range of motion) Course Vital Signs 03/14/24 11:08 Temperature 98 F Pulse Rate 86 Respiratory 20 Rate Blood Pressure 172/97 O2 Sat by Pulse 99 Oximetry Medical Decision Making - Medical Decision Making Was pt. sent in by a medical professional or institution (, PA, FINISHED GOODS PLANNER, urgent care, hospital, or long term...) When possible be specific @ -PCP Did you speak to anyone other than the patient for history (EMS, parent, family, police, friend...)? What history was obtained from this source @ -No Did you review nursing and triage notes (agree or disagree)? Why? @ -I reviewed and agree with nursing and triage notes Were old charts reviewed (outside hosp., previous admission, EMS record, old EKG, old radiological studies, urgent care reports/EKG's, long term records)? Report findings @ -No old charts were reviewed Differential Diagnosis (chest pain, altered mental status, abdominal pain women, abdominal pain men, vaginal bleeding, weakness, fever, dyspnea, syncope, headache, dizziness, GI bleed, back pain, seizure, CVA, palpatations, mental health, musculoskeletal)? @ -Leg pain, leg edema, arthritis, DVT, superficial thrombophlebitis EKG interpreted by me (3pts min.). @ -None X-rays interpreted by me (1pt min.). @ -None done CT interpreted by me (1pt min.). @ -None done U/S interpreted by me (1pt. min.). @ -Ultrasound right venous Doppler negative for acute DVT What testing was considered but not performed or refused? (CT, X-rays, U/S, labs)? Why? @ -None What meds were considered but not given or refused? Why? @ -None Did you discuss the management of the patient with other professionals (professionals i.e. , PA, FINISHED GOODS PLANNER, lab, RT, psych nurse, social insurance analyst, plug machine operator, teacher, head correction officer, outsole caser)? Give summary @ -No Was smoking cessation discussed for >3mins.? @ -No Was critical care preformed (if so, how long)? @ -No Were there social determinants of health that impacted care today? How? (Homelessness, low income, unemployed, alcoholism, drug addiction, tr ansportation, low edu. Level, literacy, decrease access to med. care, snf, rehab)? @ -No Was there de-escalation of care discussed even if they declined (Discuss DNR or withdrawal of care, Hospice)? DNR status @ -No What co-morbidities impacted this encounter? (DM, HTN, Smoking, COPD, CAD, Cancer, CVA, ARF, Chemo, Hep., AIDS, mental health diagnosis, sleep apnea, morbid obesity)? @ -None Was patient admitted / discharged? Hospital course, mention meds given and route, prescriptions, significant lab abnormalities, going to OR and other pertinent info. @ -Discharge patient presented for rule out right DVT leg patient ultrasound was negative patient has right leg pain, minimal swelling will follow-up with PCP, conservative treatment. Undiagnosed new problem with uncertain prognosis? @ -No Drug Therapy requiring intensive monitoring for toxicity (Heparin, Nitro, Insulin, Cardizem)? @ -No Were any procedures done? @ -No Diagnosis/symptom? @ -Right leg pain, swelling Acute, or Chronic, or Acute on Chronic? @ -Acute Uncomplicated (without systemic symptoms) or Complicated (systemic symptoms)? @ -Uncomplicated Side effects of treatment? @ -No Exacerbation, Progression, or Severe Exacerbation? @ -No Poses a threat to life or bodily function? How? (Chest pain, [place], [place], pneumonia, PE, COPD, DKA, ARF, appy, cholecystitis, CVA, Diverticulitis, Homicidal, Suicidal, threat to staff... and all critical care pts) @ -No Disposition Clinical Impression: Right leg pain Disposition: HOME SELF-CARE Condition: Stable Instructions (If sedation given, give patient instructions): Leg Pain (ED) Additional Instructions: Please return to the Emergency Department if symptoms worsen or any other concerns. Is patient prescribed a controlled substance at d/c from ED?: No Referrals: Jorge Gonzalez DO [Primary Care Provider] - 1-2 days Time of Disposition: 12:25
--- NOTE | 2024-03-14 12:16 | US ---
EXAMINATION TYPE: US venous doppler duplex LE RT DATE OF EXAM: 03/14/2024 11:46 AM COMPARISON: NONE CLINICAL INDICATION: Female, 73 years old with history of pain; Right leg pain SIDE PERFORMED: Right TECHNIQUE: The lower extremity deep venous system is examined utilizing real time linear array sonog joon with graded compression, doppler sonography and color-flow sonography. VESSELS IMAGED: Common Femoral Vein Deep Femoral Vein Greater Saphenous Vein * Femoral Vein Popliteal Vein Small Saphenous Vein * Proximal Calf Veins (* superficial vessels) Right Leg: Appears negative for DVT IMPRESSION: No evidence for DVT within the right lower extremity imaged from the groin to the upper calf.
[2024-03-14 12:55] VITALS: BP 163/82; PULSE 77; RESP 18; TEMP 97.7
== END 2024-03-14 12:48 | disposition home or self-care (01) ==
LOC: EC 11:07
DX: M79.604 Pain in right leg (principal); Z87.891 Personal history of nicotine dependence; Z88.1 Allergy status to other antibiotic agents; Z88.5 Allergy status to narcotic agent; Z88.2 Allergy status to sulfonamides; Z88.7 Allergy status to serum and vaccine; Z91.013 Allergy to seafood; Z88.0 Allergy status to penicillin; Z91.041 Radiographic dye allergy status; Z88.8 Allergy status to other drugs, medicaments and biological substances
CPT/HCPCS: 99283

== ENCOUNTER → 2024-03-15 | Outpatient (CLI) | payer MEDICARE ==
--- NOTE | 2024-03-15 14:20 | BMR ---
EXAM DATE: 03/15/2024 EXAM DESCRIPTION: MRI-Breast Bilat (W/WO Contrast) INDICATION: Breast pain. History of right breast cancer status post bilateral mastectomies. Evaluate implants. COMPARISON: Prior relevant imaging available in PACS was reviewed to include breast MRI 11/28/2022 TECHNIQUE: Multiplanar multisequence breast MRI was performed prior to and after administration of 6.5 mL of Gadavist intravenously. Post processing was performed utilizing a [employer] workstation. The exam was performed at [facility] and was provided to review by [facility] Radiology Department. FINDINGS: RIGHT BREAST: Status post mastectomy with subpectoral silicone implant reconstruction. The implant appears intact. Review of the dynamic contrast enhanced series shows no rapidly enhancing masses, suspicious enhancement patterns or other abnormalities in the reconstructed right breast. The T2 weighted series show no abnormality. LEFT BREAST: Status post mastectomy with subpectoral silicone implant reconstruction. The implant appears intact. Review of the dynamic contrast enhanced series shows no rapidly enhancing masses, suspicious enhancement pattern or other abnormalities in the reconstructed left breast. The T2 weighted series show no abnormality. IMPRESSION: Right breast: BI-RADS Category 2-benign. Status post mastectomy with subpectoral silicone implant reconstruction. Intact implant. No MRI evidence of malignancy in the reconstructed right breast. Left breast: BI-RADS Category 2-benign. Status post mastectomy with subpectoral silicone implant reconstruction. Intact implant. No MRI evidence of malignancy in the reconstructed left breast. OVERALL ASSESSMENT- BI-RADS 2 MTDD
== END | disposition home or self-care (01) ==
LOC: RADMRIMAIN 05:55
PROVIDERS: ATTEND Surgery
DX: T85.43XA Leakage of breast prosthesis and implant, initial encounter (principal); N64.4 Mastodynia; Z85.3 Personal history of malignant neoplasm of breast; Z98.82 Breast implant status; Z90.13 Acquired absence of bilateral breasts and nipples
CPT/HCPCS: 77049

== ENCOUNTER → 2024-04-11 | Outpatient (CLI) | payer MEDICARE, OTHER ==
--- NOTE | 2024-04-12 16:34 | MR ---
EXAMINATION TYPE: MR thoracic spine wo con DATE OF EXAM: 04/11/2024 COMPARISON: HISTORY: Mid back pain, Hx Breast cancer CONTRAST: Performed utilizing mL intravenous gadolinium contrast. TECHNIQUE: Multiplanar, multiecho imaging on a 3.0 Elsi magnet is performed through the thoracic spi ne. Spinal cord maintains normal signal through its visualized course. Vertebral body alignment is normal. Vertebral body heights are preserved. Disc heights are preserved. There is some minimal disc bulging present at T1-2, T2-3, T3-4 T6-7, T7-8 . There is loss of T2 disc height T7-8. Disc bulge is present T9-10 T11-12 and T12-L1. No cord contac t is evident through these levels. Disc hydration levels are preserved. No spinal canal stenosis is evident. There is some left paracentral disc bulging without cord contact present T9-10 left paracentral to left lateral disc bulge is present T4-5 without cord contact or sp inal canal stenosis. There is a large hemangioma at T9. Smaller hemangiomas at T11 IMPRESSION: 1. Multilevel disc bulging. Some left paracentral disc bulging with thecal sac compression is noted T 9-10 and T4-5. No cord contact is evident. 2. Degenerative disc changes at T7-8 with loss of disc height.
== END | disposition home or self-care (01) ==
LOC: RADMRIMAIN 14:48
PROVIDERS: ATTEND Family Medicine
DX: M51.34 Other intervertebral disc degeneration, thoracic region (principal); M51.24 Other intervertebral disc displacement, thoracic region; Z85.3 Personal history of malignant neoplasm of breast
CPT/HCPCS: 72146

== ENCOUNTER → 2024-10-12 | Outpatient (CLI) | payer MEDICARE, OTHER ==
--- NOTE | 2024-10-12 23:25 | MR ---
EXAMINATION TYPE: MR knee LT wo con DATE OF EXAM: 10/12/2024 COMPARISON: Outside left knee x-ray October 06, 2024 HISTORY: Chronic medial left knee pain and swelling for several months, hx scope. TECHNIQUE: Multiplanar, multisequence images of the knee is performed without IV contrast. FINDINGS: MEDIAL MENISCUS: Abnormal signal posterior horn does not definitively extend to articular surface. LATERAL MENISCUS: Anterior and posterior horns are intact without tear. CRUCIATE LIGAMENTS: The posterior cruciate ligamentous intact and unremarkable. There is increased si gnal in the anterior cruciate ligament with disruption at least majority of fibers and mid segment le francisca. COLLATERAL LIGAMENTS: The medial collateral ligament and lateral collateral ligament complex are inta ct and unremarkable. EXTENSOR MECHANISM: Visualized quadriceps and patellar tendons are intact. EFFUSION: Moderate size suprapatellar joint effusion. POPLITEAL CYST: Large sized multi septated popliteal/richter cyst. TRICOMPARTMENT SPACES: Moderate narrowing patellofemoral compartment. Mild to moderate narrowing medi al tibiofemoral compartment. No significant spurring. CARTILAGE: Some chondromalacia patella with thinning of articular cartilage along the superior media l patellar pole. Cartilaginous loss medial tibiofemoral compartment. BONE MARROW SIGNAL: Tiny subcentimeter T1 hypointense and T2 hyperintense lesion in the fibular head is favored nonaggressive coronal image 23. Well-circumscribed lesion in the medial aspect of the dist al lateral femoral condyle posteriorly sagittal image 14 near 1.0 cm is also favored nonaggressive. OTHER: No additional significant abnormality is appreciated. IMPRESSION: 1. At least significant partial tearing of the anterior cruciate ligament. 2. Intrasubstance tear posterior horn of medial meniscus, no definitive full-thickness meniscal tear. 3. Large size septated popliteal cyst. 4. Moderate size suprapatellar joint effusion. 5. Mild to moderate tricompartment degenerative changes are present as detailed above. [facility], , 10/12/2024 11:23 PM
== END | disposition home or self-care (01) ==
LOC: RADMRIMAIN 10:36
PROVIDERS: ATTEND Orthopaedic Surgery
DX: S83.242A Other tear of medial meniscus, current injury, left knee, initial encounter (principal); M17.12 Unilateral primary osteoarthritis, left knee; M25.462 Effusion, left knee; M71.22 Synovial cyst of popliteal space [Baker], left knee

== ENCOUNTER → 2024-10-25 | Outpatient (CLI) | payer MEDICARE, OTHER ==
[2024-10-25 14:59] LABS: Basophils # (A) 0.04 X 10*3/uL (0.00-0.10); Basophils % (A) 0.8 %; Eosinophils # (A) 0.08 X 10*3/uL (0.04-0.35); Eosinophils % (A) 1.6 %; HCT 43.2 % (37.2-46.3); HGB 13.9 g/dL (12.0-15.0); Lymphocytes # (A) 1.22 X 10*3/uL (0.90-5.00); Lymphocytes % (A) 24.4 %; MCH 29.1 pg (27.0-32.0); MCHC 32.2 g/dL (32.0-37.0); MCV 90.6 FL (80.0-97.0); Mean Platelet Volume 10.3 FL (9.5-12.2); Monocytes # (A) 0.29 X 10*3/uL (0.20-1.00); Monocytes % (A) 5.8 %; NRBC Per 100 WBC 0 X 10*3/uL (0.00-0.01); Neutrophils # (A) 3.36 X 10*3/uL (1.80-7.70); Platelet Count 244 X 10*3/uL (140-440); RBC 4.77 X 10*6/uL (4.10-5.20); WBC 5.01 X 10*3/uL (4.50-10.00)
[2024-10-25 15:10] LABS: Blood Urea Nitrogen 15.3 mg/dL (9.0-27.0); Calcium 9.5 mg/dL (8.7-10.3); Chloride 104 mmol/L (96-109); Glucose 94 mg/dL (70-110); Potassium 4.6 mmol/L (3.5-5.5); Sodium 139 mmol/L (135-145)
== END | disposition home or self-care (01) ==
LOC: LABPAT 12:10
PROVIDERS: ATTEND Orthopaedic Surgery
DX: Z01.818 Encounter for other preprocedural examination (principal); M23.92 Unspecified internal derangement of left knee; R94.31 Abnormal electrocardiogram [ECG] [EKG]
CPT/HCPCS: 80048; 85025; 93005

== ENCOUNTER 2024-11-04 09:51 | Day surgery (SDC) | payer MEDICARE, OTHER ==
--- NOTE | 2024-11-02 08:51 | P.HPOR ---
History of Present Illness H&P Date: 11/02/24 Chief Complaint: Left knee pain The patient is a 74-year-old retired female who presents with left knee pain after an injury 10/02/2024. She twisted her knee going down stairs. She notes medial and posterior pain with weightbearing activities. She is having night symptoms. She notes buckling. She tried medications in addition to an injection with only temporary partial relief. She notes daily pain that limits her. Review of Systems Per HPI Past Medical History Past Medical History: Cancer, COPD, CVA/TIA, GERD/Reflux, Memory Impairment, Musculoskeletal Disorder, Thyroid Disorder, Vascular Disorder Additional Past Medical History / Comment(s): HYPOTHYROID, HX OF TIA DUE TO HEAD TRAUMA, Restless Leg Syndrome, MIGRAINES, NEUROPATHY, PERIPHERAL ARTERY DISEASE, HX OF PNEUMONIA & PLEURISY, HX OF MONO, IBS, DJD & BONE SPURS WITH BACK & NECK PAIN, BAKERS CYSTS, HX OF ANEMIA, BREAST CANCER 02/2014 WITH 6 MONTHS OF CHEMO, SURGICAL INFECTION WITH REMOVAL OF TISSUE EXPANDERS 09/2014, PALPITATIONS. History of Any Multi-Drug Resistant Organisms: None Reported Past Surgical History: Bladder Surgery, Breast Surgery, Cholecystectomy, Hysterectomy, Orthopedic Surgery, Tonsillectomy, Tubal Ligation Additional Past Surgical History / Comment(s): BLADDER SUSPENSION, LEFT KNEE ARTHROSCOPY, BILATERAL CATARACTS, BILATERAL CARPAL TUNNEL, BILATERAL MASTECTOMY /LYMPHECTOMY ON RIGHT SIDE ONLY W/ TISSUE EXPANDERS(-2013). REMOVAL OF TISSUE EXPANDERS (09/2014), EXPANDERS REINSERTED 02/2015. BREAST IMPLANTS. Past Anesthesia/Blood Transfusion Reactions: Previous Problems w/ Anesthesia Additional Past Anesthesia/Blood Transfusion Reaction / Comment(s): BP RUNS LOW AND DIFFICULTY WAKING UP. Difficult IV Start. Past Psychological History: Anxiety, Depression Smoking Status: Former smoker Past Alcohol Use History: None Reported Past Drug Use History: None Reported - Past Family History Father Family Medical History: Cancer Additional Family Medical History / Comment(s): CANCER BEHIND ESOPHAGUS. Mother Family Medical History: No Reported History Additional Family Medical History / Comment(s): alcoholic Brother(s) Family Medical History: Cancer Additional Family Medical History / Comment(s): ANAL CANCER Medications and Allergies Home Medications Medication Instructions Recorded Confirmed Type Pramipexole [Mirapex] 0.5 mg PO DAILY 04/18/14 03/04/24 History Hydrocodone/Acetaminophen 1 tab PO TID PRN 07/03/14 03/08/24 History [Hydrocodone/Acetaminophen 10-325] Simvastatin [Zocor] 10 mg PO DAILY 06/20/16 03/04/24 History estradioL [Estradiol] 1 mg PO DAILY 04/14/17 03/04/24 History Levothyroxine Sodium 88 mcg PO DAILY 10/09/21 03/04/24 History amLODIPine BESYLATE 5 mg PO DAILY 10/09/21 03/04/24 History Pantoprazole [Protonix] 40 mg PO DAILY 01/01/23 03/04/24 History Allergies Allergy/AdvReac Type Severity Reaction Status Date / Time adhesive Allergy Rash/Hives Verified 03/14/24 11:10 cephalexin monohydrate Allergy Rash/Hives Verified 03/14/24 11:10 [From Keflex] ciprofloxacin [From Cipro] Allergy Rash/Hives Verified 03/14/24 11:10 codeine Allergy Rash/Hives Verified 03/14/24 11:10 diphenhydramine HCl Allergy Rash/Hives Verified 03/14/24 11:10 [From Benadryl] erythromycin base Allergy Rash/Hives Verified 03/14/24 11:10 [Erythromycin Base] eucalyptus Allergy Rash/Hives Verified 03/14/24 11:10 heparin Allergy Rash/Hives Verified 03/14/24 11:10 Influenza Virus Vaccines Allergy Rash/Hives Verified 03/14/24 11:10 Iodinated Contrast Media Allergy Rash/Hives Verified 03/14/24 11:10 [Iodinated Contrast Media - IV Dye] iodine Allergy Rash/Hives Verified 03/14/24 11:10 levofloxacin [From Levaquin] Allergy Rash/Hives Verified 03/14/24 11:10 loperamide HCl Allergy Rash/Hives Verified 03/14/24 11:10 [From Imodium A-D] Penicillins Allergy Rash/Hives Verified 03/14/24 11:10 ranitidine HCl [From Zantac] Allergy Rash/Hives Verified 03/14/24 11:10 ropinirole HCl [From Requip] Allergy Rash/Hives Verified 03/14/24 11:10 shellfish derived Allergy Rash/Hives Verified 03/14/24 11:10 Sulfa (Sulfonamide Allergy Rash/Hives Verified 03/14/24 11:10 Antibiotics) vancomycin Allergy Anaphylaxis Verified 03/14/24 11:10 hydrocodone bitartrate AdvReac Rapid Verified 03/14/24 11:10 [From Vicodin] Heart Rate Physical Examination - Knee left Appearance: effusion Effusion grade: grade 3 Tenderness with palpation: anterior, medial, lateral Pain: throughout ROM Gait: limping ROM: extension: -15 degrees ROM: flexion: 90 degrees Crepitus with motion: Yes Strength: extension: 5/5 Strength: flexion: 5/5 ACL tests: Jessica's: grade 2, pivot shift: grade 2 Meniscal tests: medial meniscal tests: positive, lateral meniscal tests: positive, medial joint line pain: positive, lateral joint line pain: positive Results Patient is a well-developed well-nourished female approximately 5 foot tall, 130 pounds of mesomorphic habitus. HEENT exam is nonfocal, neck supple. She has painless passive motion of the left hip. Straight leg raise is negative. On examination of her left knee, she is tender about the medial and lateral joint line. Collaterals are stable, Jessica's 2+, Desmond's elicits medial and lateral pain. Her distal neurovascular exam appears intact in the left lower extremity. - Diagnostic results Knee MRI: image reviewed (MRI of the left knee is reviewed and shows evidence of an ACL rupture along with increased signal involving the posterior horn of the medial meniscus.) Assessment and Plan Assessment: Left knee internal derangement/medial meniscal tear/ACL rupture Plan: I talked to the patient at length regarding her condition along with treatment options. At this point she's quite symptomatic after this acute injury having pain and mechanical symptoms despite attempted conservative measures. After a thorough discussion she opts to proceed with surgery. We'll proceed with left knee arthroscopy with probable partial medial meniscectomy in addition to ACL debridement. We will likely perform that as an outpatient procedure. Risks and benefits were discussed at length in layman's terms.
[~2024-11-04 09:51] MED LIST changes: +droPERidol 5 MG/2 ML VIAL IVP ONE; +fentaNYL (PF) 50 MCG/ML 2 ML AMP IV PRN
[2024-11-04] MEDS: IV FLUID CONTINUATION 1,000 ML IV ONE ×2 (10:35→14:41)
[2024-11-04] MEDS: DEXAMETHASONE SOD PHOSPHATE 4 MG/ML 1 ML VIAL IV ONE (10:52)
[2024-11-04] MEDS: ONDANSETRON 4 MG/2 ML VIAL IVP ONE (10:52)
[2024-11-04] MEDS: LACTATED RINGERS 1,000 ML IV SCH (10:52)
[2024-11-04] MEDS ORDERED: PROPOFOL 10 MG/ML 20 ML VIAL IV ONE (12:00)
[2024-11-04] MEDS ORDERED: ePHEDrine 50 MG/ML 1 ML VIAL ONE (12:00)
[2024-11-04] MEDS ORDERED: HYDROmorphone (PF) 1 MG/ML ONE (12:00)
[2024-11-04] MEDS ORDERED: fentaNYL (PF) 50 MCG/ML 2 ML AMP ONE (12:00)
[2024-11-04] MEDS ORDERED: LIDOCAINE 1% INJ 10MG/ML (20 ML MDV) ONE (12:00)
[2024-11-04] MEDS: EPINEPHrine (PF) 1 ML in SODIUM CHLORIDE 0.9% IRRIGATIO 3,000 ML IRRIGATION ONE (12:20)
--- NOTE | 2024-11-04 12:49 | P.OP ---
Date of Procedure: 11/04/24 Preoperative Diagnosis: Left knee internal derangement Postoperative Diagnosis: Left knee posterior medial meniscal tear/posterior lateral meniscal tear/partial ACL sprain Procedure(s) Performed: Left knee arthroscopic partial medial meniscectomy/partial lateral meniscectomy Anesthesia: FEDERICO Surgeon: Juarez Shelby Pmp Certified Project Manager #1: Ace Guzman Estimated Blood Loss (ml): 10 Pathology: none sent Condition: stable Disposition: PACU Indications for Procedure: The patient is a 74-year-old female who presents with progressive left knee pain and mechanical symptoms after an acute injury. A discussion of the risks and benefits of operative intervention versus continued conservative measures was made with the patient. She opted to proceed with surgery. Operative risks include infection, neurovascular injury, development of blood clots, possible incomplete resolution of symptoms, possible worsening of symptoms need for subsequent procedures was discussed. Informed consent was obtained. Operative Findings: As below Description of Procedure: The patient was brought to the operating room, and after induction of general anesthesia examined the left knee. Collaterals were stable, Jessica was 1+, and posterior drawer was negative. The left lower extremity was prepped and draped in a normal fashion. A superior lateral portal was made through a 3 mm skin incision superior and lateral to the patella. This was used for outflow. A lateral portal was made through a 5 mm vertical skin incision lateral to the patella tendon above the joint line. Diagnostic arthroscopy was performed. On inspection of the medial compartment, a complex tear involving the posterior horn of the medial meniscus in the white-junction was noted. This was debrided back to stable base with straight baskets and a motorized shaver. Remaining medial meniscus was stable and intact. Grade 2-3 chondral changes were noted along the distal medial portion of the medial femoral condyle. On inspection of the notch, the anterior cruciate ligament appeared to be partially ruptured. The tissue impinging on the lateral compartment was debrided with a motorized shaver. The remaining ligament was left intact.. On inspection of the lateral compartment, a radial tear involving the middle one third of the lateral meniscus was noted in the white-white junction. This is debrided back to stable base with a motorized shaver. Grade 2 chondral changes were noted along the posterior lateral portion of the lateral femoral condyle. On inspection of the patellofemoral articulation, there was chondral fibrillation and grade 2-3 changes involving the femoral trochlea. The gutters were clear debris. The knee was then thoroughly irrigated. The portals were closed with Steri-Strips. A sterile dressing was applied in addition to a compression stocking. The patient was awoken from general anesthesia and transferred to recovery room in good condition. Blood loss was estimated at 10 mL. No complications were inc urred.
[2024-11-04 12:58] VITALS: TEMP 96.9
[2024-11-04] MEDS: HYDROmorphone 0.5 MG/0.5 ML SYRINGE IVP PRN (13:14)
[2024-11-04] MEDS: HYDROcodone/APAP 10-325MG 1 EACH TAB PO ONE (14:32)
[2024-11-04 15:15] VITALS: BP 124/73; PULSE 86; RESP 18
== END 2024-11-04 15:43 | disposition home or self-care (01) ==
LOC: OR 09:51
PROVIDERS: ATTEND Orthopaedic Surgery
DX: S83.232A Complex tear of medial meniscus, current injury, left knee, initial encounter (principal); S83.282A Other tear of lateral meniscus, current injury, left knee, initial encounter; S83.512A Sprain of anterior cruciate ligament of left knee, initial encounter; M94.262 Chondromalacia, left knee; I10 Essential (primary) hypertension; E78.5 Hyperlipidemia, unspecified; E03.9 Hypothyroidism, unspecified; J44.9 Chronic obstructive pulmonary disease, unspecified; I73.9 Peripheral vascular disease, unspecified; G25.81 Restless legs syndrome; K21.9 Gastro-esophageal reflux disease without esophagitis; F03.90 Unspecified dementia, unspecified severity, without behavioral disturbance, psychotic disturbance, mood disturbance, and anxiety; Z79.890 Hormone replacement therapy; Z79.899 Other long term (current) drug therapy; Z87.891 Personal history of nicotine dependence; Z86.73 Personal history of transient ischemic attack (TIA), and cerebral infarction without residual deficits; Z85.3 Personal history of malignant neoplasm of breast; Z88.1 Allergy status to other antibiotic agents; Z91.041 Radiographic dye allergy status; Z88.5 Allergy status to narcotic agent; Z88.0 Allergy status to penicillin; Z88.2 Allergy status to sulfonamides; Z88.7 Allergy status to serum and vaccine; Z88.8 Allergy status to other drugs, medicaments and biological substances; Z91.048 Other nonmedicinal substance allergy status; X50.1XXA Overexertion from prolonged static or awkward postures, initial encounter
CPT/HCPCS: 29880; J1100; J0690; J2405; J0171; J2003; J3010; J1171 ×2; J2704

== ENCOUNTER → 2024-12-12 | Outpatient (CLI) | payer MEDICARE, OTHER ==
[2024-12-12 11:16] VITALS: BP 126/83; PULSE 97; RESP 18; TEMP 97.6
--- NOTE | 2024-12-12 11:35 | P.PAINCN ---
History of Present Illness - History of Present Illness 74-year-old pleasant lady who has been sent to pain clinic for evaluation of c hest wall pain. Her pain starts in the mid back area going around the chest wall up to the xiphoid process. This pain was going for about a year without any known trauma or fall. Describes the pain as burning aching in character. Close up to 10/10. Significant aggravating factor but any movement increases the pain. No significant relieving factor, pain medication decreases pain to some extent. Patient denies any bowel bladder dysfunction. Although she has chronic urinary incontinence for many years. Which has not changed. Sensory or motor dysfunction. But patient has also cervical spine problem for which she had been suggested to go for surgery. Has got chronic pain secondary to arthritis of multiple joints. Past Medical History Past Medical History: Cancer, COPD, CVA/TIA, GERD/Reflux, Memory Impairment, Musculoskeletal Disorder, Thyroid Disorder, Vascular Disorder Additional Past Medical History / Comment(s): HYPOTHYROID, HX OF TIA DUE TO HEAD TRAUMA, Restless Leg Syndrome, MIGRAINES, NEUROPATHY, PERIPHERAL ARTERY DISEASE, HX OF PNEUMONIA & PLEURISY, HX OF MONO, IBS, DJD & BONE SPURS WITH BACK & NECK PAIN, BAKERS CYSTS, HX OF ANEMIA, BREAST CANCER 02/2014 WITH 6 MONTHS OF CHEMO, SURGICAL INFECTION WITH REMOVAL OF TISSUE EXPANDERS 09/2014, PALPITATIONS. History of Any Multi-Drug Resistant Organisms: None Reported Past Surgical History: Bladder Surgery, Breast Surgery, Cholecystectomy, Hysterectomy, Orthopedic Surgery, Tonsillectomy, Tubal Ligation Additional Past Surgical History / Comment(s): BLADDER SUSPENSION, LEFT KNEE ARTHROSCOPY, BILATERAL CATARACTS, BILATERAL CARPAL TUNNEL, BILATERAL MASTECTOMY /LYMPHECTOMY ON RIGHT SIDE ONLY W/ TISSUE EXPANDERS(). REMOVAL OF TISSUE EXPANDERS (09/2014), EXPANDERS REINSERTED 02/2015. BREAST IMPLANTS. Past Anesthesia/Blood Transfusion Reactions: Previous Problems w/ Anesthesia Additional Past Anesthesia/Blood Transfusion Reaction / Comm: BP RUNS LOW AND DIFFICULTY WAKING UP. Difficult IV Start. Past Psychological History: Anxiety, Depression Additional Psychological History / Comment(s): Takes Wellbutrin daily and Xanax as needed Smoking Status: Former smoker Past Alcohol Use History: None Reported Additional Past Alcohol Use History / Comment(s): HX OF ETOH ABUSE, STATES [place] since 1977. STARTED SMOKING AT AGE 17, QUIT in 1997. Past Drug Use History: None Reported Additional Drug Use History / Comment(s): TEENAGER. - Past Family History Father Family Medical History: Cancer Additional Family Medical History / Comment(s): CANCER BEHIND ESOPHAGUS. Mother Family Medical History: No Reported History Additional Family Medical History / Comment(s): alcoholic Brother(s) Family Medical History: Cancer Additional Family Medical History / Comment(s): ANAL CANCER Medications and Allergies Home Medications Medication Instructions Recorded Confirmed Type Pramipexole [Mirapex] 0.5 mg PO HS 04/18/14 11/04/24 History Hydrocodone/Acetaminophen 1 tab PO TID PRN 07/03/14 11/04/24 History [Hydrocodone/Acetaminophen 10-325] Simvastatin [Zocor] 10 mg PO HS 06/20/16 11/04/24 History estradioL [Estradiol] 1 mg PO HS 04/14/17 11/04/24 History Levothyroxine Sodium 100 mcg PO HS 10/09/21 11/04/24 History amLODIPine BESYLATE 5 mg PO HS 10/09/21 11/04/24 History Pantoprazole [Protonix] 40 mg PO HS 01/01/23 11/04/24 History Nystatin/Triamcinolone Acet 1 applic VAGINAL DIRECTED 11/02/24 11/04/24 History [Nystatin-Triamcinolone Oint] Sodium Chloride 5% Ophth Soln 1 drops BOTH EYES DAILY 11/02/24 11/04/24 History [Sina 128] Vibegron [Gemtesa] 75 mg PO HS 11/02/24 11/04/24 History Allergies Allergy/AdvReac Type Severity Reaction Status Date / Time adhesive Allergy Rash/Hives Verified 11/04/24 10:29 cephalexin monohydrate Allergy Rash/Hives Verified 11/04/24 10:29 [From Keflex] ciprofloxacin [From Cipro] Allergy Rash/Hives Verified 11/04/24 10:29 codeine Allergy Rash/Hives Verified 11/04/24 10:29 diphenhydramine HCl Allergy Rash/Hives Verified 11/04/24 10:29 [From Benadryl] erythromycin base Allergy Rash/Hives Verified 11/04/24 10:29 [Erythromycin Base] eucalyptus Allergy Rash/Hives Verified 11/04/24 10:29 heparin Allergy Rash/Hives Verified 11/04/24 10:29 Influenza Virus Vaccines Allergy Rash/Hives Verified 11/04/24 10:29 Iodinated Contrast Media Allergy Rash/Hives Verified 11/04/24 10:29 [Iodinated Contrast Media - IV Dye] iodine Allergy Rash/Hives Verified 11/04/24 10:29 levofloxacin [From Levaquin] Allergy Rash/Hives Verified 11/04/24 10:29 loperamide HCl Allergy Rash/Hives Verified 11/04/24 10:29 [From Imodium A-D] Penicillins Allergy Rash/Hives Verified 11/04/24 10:29 ranitidine HCl [From Zantac] Allergy Rash/Hives Verified 11/04/24 10:29 ropinirole HCl [From Requip] Allergy Rash/Hives Verified 11/04/24 10:29 shellfish derived Allergy Rash/Hives Verified 11/04/24 10:29 Sulfa (Sulfonamide Allergy Rash/Hives Verified 11/04/24 10:29 Antibiotics) vancomycin Allergy Anaphylaxis Verified 11/04/24 10:29 hydrocodone bitartrate AdvReac Rapid Verified 11/04/24 10:29 [From Vicodin] Heart Rate Physical Exam Vitals: Vital Signs Temp Pulse Resp BP Pulse Ox 12/12/24 11:06 97.6 F 97 18 126/83 96 Intake and Output 12/11/24 12/12/24 12/12/24 22:59 06:59 14:59 Other: Weight 61.235 kg Thoracic spine. Tenderness over the thoracic spine and paraspinal muscles bilaterally mostly on the left side at the mid thoracic level. Thoracic spine flexion and extension rotation is appropriate for age. Significant rash noted on the skin. Motor strength of upper and lower extremities grossly intact 5/5. Reflexes of lower extremities bilaterally. Touch grossly intact bilaterally in the lower extremities. Results Results: MRI of thoracic spine was reviewed. Assessment and Plan Plan: Assessment. Chronic mid back pain. Thoracicspine disc herniation. Thoracic radiculopathy Plan. Will schedule for thoracic epidural steroid injection T4-5 level. Discussed the diagnosis, procedures, alternatives, complications which may include infection, bleeding, nerve damage, paralysis all of which could be permanent. Patient understands. All questions answered. PQRS Measure Charge Sheet Mode of Arrival: Ambulatory - Pain Location Left Knee Non-Pharmacological Interventions: Ice Pharmacological Interventions: Topical Medication PQRS Narrative: Smoking Status Former smoker Narcotic Agreement Date Signed 12/12/24 Blood Pressure 126/83 Pain Intensity [Left Knee] 3 Scale Used Numeric (1 - 10) Hx Alcohol Use (MH) No Home Medications: Ambulatory Orders Pramipexole [Mirapex] 0.5 mg PO HS 04/18/14 Hydrocodone/Acetaminophen [Hydrocodone/Acetaminophen 10-325] 1 tab PO TID PRN 07/03/14 Simvastatin [Zocor] 10 mg PO HS 06/20/16 estradioL [Estradiol] 1 mg PO HS 04/14/17 Levothyroxine Sodium 100 mcg PO HS 10/09/21 amLODIPine BESYLATE 5 mg PO HS 10/09/21 Pantoprazole [Protonix] 40 mg PO HS 01/01/23 Nystatin/Triamcinolone Acet [Nystatin-Triamcinolone Oint] 1 applic VAGINAL DIRECTED 11/02/24 Sodium Chloride 5% Ophth Soln [Sina 128] 1 drops BOTH EYES DAILY 11/02/24 Vibegron [Gemtesa] 75 mg PO HS 11/02/24
== END ==
LOC: PNWHC3 09:58
PROVIDERS: ATTEND Pain Medicine Interventional Pain Medicine
DX: M51.24 Other intervertebral disc displacement, thoracic region (principal); M54.14 Radiculopathy, thoracic region; Z91.09 Other allergy status, other than to drugs and biological substances; Z88.1 Allergy status to other antibiotic agents; Z88.7 Allergy status to serum and vaccine; Z88.5 Allergy status to narcotic agent; Z88.0 Allergy status to penicillin; Z91.013 Allergy to seafood; Z88.2 Allergy status to sulfonamides; Z88.8 Allergy status to other drugs, medicaments and biological substances; Z91.041 Radiographic dye allergy status
CPT/HCPCS: 99202

== ENCOUNTER → 2025-01-30 | Outpatient (CLI) | payer MEDICARE, OTHER ==
[2025-01-30 15:10] LABS: Basophils # (A) 0.06 X 10*3/uL (0.00-0.10); Basophils % (A) 1.2 %; Eosinophils # (A) 0.09 X 10*3/uL (0.04-0.35); Eosinophils % (A) 1.8 %; HGB 13.2 g/dL (12.0-15.0); Lymphocytes # (A) 1.39 X 10*3/uL (0.90-5.00); Lymphocytes % (A) 27.3 %; MCH 28.8 pg (27.0-32.0); MCHC 31.4 g/dL (32.0-37.0); MCV 91.7 FL (80.0-97.0); Mean Platelet Volume 9.9 FL (9.5-12.2); Monocytes # (A) 0.44 X 10*3/uL (0.20-1.00); Monocytes % (A) 8.6 %; NRBC Per 100 WBC 0 X 10*3/uL (0.00-0.01); Neutrophils % (A) 60.7 %; Platelet Count 221 X 10*3/uL (140-440); RBC 4.58 X 10*6/uL (4.10-5.20); RDW 13.8 % (11.5-14.5)
[2025-01-30 15:50] LABS: Chol/HDL Ratio 2.27 Ratio; VLDL Calculation 16.26 mg/dL (5.00-40.00)
[2025-01-30 15:51] LABS: ALT 15 U/L (8-44); AST 24 U/L (13-35); Albumin 4.4 g/dL (3.8-4.9); Alkaline Phosphatase 73 U/L (41-126); BUN/Creat Ratio 12.33 Ratio (12.00-20.00); Blood Urea Nitrogen 11.1 mg/dL (9.0-27.0); Calcium 9.6 mg/dL (8.7-10.3); Carbon Dioxide 25.8 mmol/L (21.6-31.8); Chloride 105 mmol/L (96-109); Glucose 95 mg/dL (70-110); LDL Cholesterol,Calculated 98.2 mg/dL (0.0-131.0); Potassium 4.3 mmol/L (3.5-5.5); Sodium 140 mmol/L (135-145); T4, Free (Free Thyroxine) 1.63 ng/dL (0.80-1.80); Total Bilirubin 0.7 mg/dL (0.3-1.2); Total Protein 6.4 g/dL (6.2-8.2)
== END | disposition home or self-care (01) ==
LOC: LABWHC1 08:58
PROVIDERS: ATTEND Family Medicine
DX: I10 Essential (primary) hypertension (principal); E03.9 Hypothyroidism, unspecified; M19.90 Unspecified osteoarthritis, unspecified site
CPT/HCPCS: 36415; 80053; 80061; 82306; 82607; 84439; 84443; 84481; 85025

== ENCOUNTER → 2025-02-20 | Outpatient (CLI) | payer MEDICARE, OTHER ==
[2025-02-20 11:58] VITALS: BP 135/81; PULSE 107; RESP 16
--- NOTE | 2025-02-20 15:21 | P.PAINPG ---
PQRS Measure Charge Sheet Comment: A 74 yr old female with a history of severe and chronic LBP secondary to radiculopathy, spondylosis with facet arthropathy without myelopathy presents today for medication refills. Pain level is provoked at 7 /10 in intensity, constant, predominantly axial, localized in the lumbar spine, dull in character w occasional shooting towards the flanks. Pain is provoked by bending, over activity. Pain is alleviated with physician guided stretches daily since Nov 2023, heat, ice, medications, topical, repositioning and rest. Oswestry axial pain score at 29. Interventional pain procedures completed include Patient is currently on Magnolia 10/325mg #90 Patient denies any side effects of the medication(s), denies excessive drowsiness or sleepiness, denies suicidal ideation and reports that the current pain medication is helping to control the pain and improve activities of daily living. Patient denies any motor or sensory deficits. Patient denies any fever or night sweats, denies any change in the bowel movements or urination. Physical Examination: -Constitutional: Cooperative. Not in acute distress . - Neurologic: Cranial nerve II to XII intact. No focal neurological deficits. - Psychatric: Alert & oriented x 3. Matching mood & appropriate affect. Judgment and insight intact. - Musculoskeletal: Cervical spine: Muscle bulk/ tone/ strength in the bilateral upper extremities normal Vertebral body tenderness to palpation over Spurling test positive Distraction test positive Facet loading test positive TTP Thoracic spine Muscle bulk / tone/ strength in the bilateral paraspinal muscles normal Vertebral body tender to palpation over Facet loading test positive TTP Lumbar spine: Motor bulk/ tone/ strength lower extremities , thigh and legs : 5/5 Deep tendon reflexes : Normal Knee Jerk. Normal Ankle Jerk . Vertebral body tenderness to palpation over Vazquez Test positive Lumbar Facet Loading Test positive Straight Leg Raise: positive at 30 degrees right side/ left side Gaenslen's Test positive Sacral spine : Severe tenderness over the Sacroiliac joint: right side / left side Range of motion: Flexion of the lumbar spine <60 degrees Range of motion: Extension of the lumbar spine <20 degrees Gaenslen's Test positive right side / left side Marshall test: positive right side / left side Thigh Thrust Test positive right side / left side Sacral Thrust Test positive right side / left side Assessment and plan: Chronic LBP secondary to lumbar radiculopathy, spondylosis with facet arthropathy without myelopathy Chronic and current use of high-risk medication (Opioids). The patient was counseled about risk of opioid use, psychological risk associated with opioids and was orally counseled to not overuse , divert or sell medications. Pt is to store medication in a safe location. The patient is counseled against driving while using narcotic medications and also not to use alcohol or any illicit recreational drugs. Patient verbalized understanding that the lack of compliance will result in failure to renew narcotic prescription(s) as well as possible discharge from the clinic Diagnoses, prognosis and treatment options including but not limited to physical therapy, surgical interventions, interventional therapies and medication management including narcotics and adjuvant medication were discussed. All patient questions answered . Use, side effects, adverse reactions, safe storage discussed. MAPS reviewed and it was appropriate. Opiate/ narcotic agreement signed 12/15/24. Unable to provide UDS 02/20/25 so cancelled e-script for Magnolia 10/325mg #90 w 1 RF. I have spent less than 30 minutes on patient care today. Dr Mcfarland was avail able by phone for the evaluation of this patient. The time was used to review the medical records including relevant urine studies and Prescription history (MAPs), review of the available imaging, evaluation and examination of the patient, coordination of care with the medical staff and if applicable referring physicians, as well as creation of the medical record - Pain Location Bilateral Lower Back Non-Pharmacological Interventions: Heat, Ice, Inactivity, Position/Reposition Pharmacological Interventions: PRN Medication, Scheduled Medication, Topical Medication PQRS Narrative: Smoking Status Former smoker Narcotic Agreement Date Signed 12/12/24 Hx Alcohol Use (MH) No Home Medications: Ambulatory Orders Pramipexole [Mirapex] 0.5 mg PO HS 04/18/14 Hydrocodone/Acetaminophen [Hydrocodone/Acetaminophen 10-325] 1 tab PO TID PRN 07/03/14 Simvastatin [Zocor] 10 mg PO HS 06/20/16 estradioL [Estradiol] 1 mg PO HS 04/14/17 Levothyroxine Sodium 100 mcg PO HS 10/09/21 amLODIPine BESYLATE 5 mg PO HS 10/09/21 Pantoprazole [Protonix] 40 mg PO HS 01/01/23 Nystatin/Triamcinolone Acet [Nystatin-Triamcinolone Oint] 1 applic VAGINAL DIRECTED 11/02/24 Sodium Chloride 5% Ophth Soln [Sina 128] 1 drops BOTH EYES DAILY 11/02/24 Vibegron [Gemtesa] 75 mg PO HS 11/02/24 HYDROcodone/APAP 10-325MG [Magnolia 10-325] 1 tab PO TID PRN 30 Days #90 tab 02/20/25 HYDROcodone/APAP 10-325MG [Magnolia 10-325] 1 tab PO TID PRN 30 Days #90 tab 02/20/25 Controlled Substance Measures - Controlled Substance Measures Is patient prescribed a controlled substance at discharge?: Yes When asked, does pt state using other controlled substances?: No If prescribed controlled substance>3 days was MAPS reviewed?: Yes
== END ==
LOC: PNWHC3 10:05
PROVIDERS: ATTEND Specialist
DX: G89.4 Chronic pain syndrome (principal); M47.26 Other spondylosis with radiculopathy, lumbar region; Z86.59 Personal history of other mental and behavioral disorders; Z87.891 Personal history of nicotine dependence; Z91.013 Allergy to seafood; Z91.048 Other nonmedicinal substance allergy status; Z88.1 Allergy status to other antibiotic agents; Z88.0 Allergy status to penicillin; Z88.5 Allergy status to narcotic agent; Z88.2 Allergy status to sulfonamides; Z88.8 Allergy status to other drugs, medicaments and biological substances
CPT/HCPCS: 80307; 99212

== ENCOUNTER → 2025-03-23 | Outpatient (CLI) | payer MEDICARE, OTHER ==
[2025-03-23 16:56] LABS: INR 0.9 (<1.2); Prothrombin Time 9.9 sec (10.0-12.5)
[2025-03-23 16:57] LABS: Partial Thromboplastin Time 23.8 sec (22.0-30.0)
[2025-03-24 02:19] LABS: Basophils # (A) 0.06 X 10*3/uL (0.00-0.10); Basophils % (A) 0.8 %; Eosinophils # (A) 0.12 X 10*3/uL (0.04-0.35); Eosinophils % (A) 1.6 %; HCT 42.1 % (37.2-46.3); HGB 13.2 g/dL (12.0-15.0); Lymphocytes # (A) 1.49 X 10*3/uL (0.90-5.00); Lymphocytes % (A) 19.9 %; MCH 28.8 pg (27.0-32.0); MCHC 31.4 g/dL (32.0-37.0); MCV 91.9 FL (80.0-97.0); Mean Platelet Volume 10.4 FL (9.5-12.2); Monocytes # (A) 0.49 X 10*3/uL (0.20-1.00); Monocytes % (A) 6.5 %; NRBC Per 100 WBC 0 X 10*3/uL (0.00-0.01); Neutrophils # (A) 5.33 X 10*3/uL (1.80-7.70); Neutrophils % (A) 71.1 %; Platelet Count 243 X 10*3/uL (140-440); RBC 4.58 X 10*6/uL (4.10-5.20); RDW 14.8 % (11.5-14.5)
[2025-03-24 02:47] LABS: ALT 15 U/L (8-44); AST 24 U/L (13-35); Albumin 4.4 g/dL (3.8-4.9); Alkaline Phosphatase 82 U/L (41-126); BUN/Creat Ratio 16.88 Ratio (12.00-20.00); Blood Urea Nitrogen 13.5 mg/dL (9.0-27.0); Calcium 9.8 mg/dL (8.7-10.3); Carbon Dioxide 23.1 mmol/L (21.6-31.8); Chloride 105 mmol/L (96-109); Globulin 2.2 g/dL (1.6-3.3); Glucose 96 mg/dL (70-110); Potassium 4.3 mmol/L (3.5-5.5); Sodium 140 mmol/L (135-145); Total Bilirubin 0.3 mg/dL (0.3-1.2); Total Protein 6.6 g/dL (6.2-8.2)
== END | disposition home or self-care (01) ==
LOC: LABPAT 16:01
PROVIDERS: ATTEND Family Medicine
DX: Z01.812 Encounter for preprocedural laboratory examination (principal)
CPT/HCPCS: 80053; 85025; 85610; 85730

== ENCOUNTER → 2025-06-09 | Outpatient (CLI) | payer MEDICARE, OTHER ==
[2025-06-09 15:26] LABS: ALT 16 U/L (8-44); AST 25 U/L (13-35); Albumin 4.5 g/dL (3.8-4.9); Albumin/Globulin Ratio 2.25 Ratio (1.60-3.17); Alkaline Phosphatase 70 U/L (41-126); Anion Gap 11.00 mmol/L (4.00-12.00); BUN/Creat Ratio 12.89 Ratio (12.00-20.00); Blood Urea Nitrogen 11.6 mg/dL (9.0-27.0); Calcium 9.5 mg/dL (8.7-10.3); Carbon Dioxide 26.0 mmol/L (21.6-31.8); Chloride 103 mmol/L (96-109); Globulin 2.0 g/dL (1.6-3.3); Glucose 104 mg/dL (70-110); Potassium 3.8 mmol/L (3.5-5.5); Sodium 140 mmol/L (135-145); Total Protein 6.5 g/dL (6.2-8.2)
== END | disposition home or self-care (01) ==
LOC: LABWHC1 10:08
PROVIDERS: ATTEND Family Medicine
DX: I10 Essential (primary) hypertension (principal)
CPT/HCPCS: 36415; 80053

== ENCOUNTER → 2025-06-19 | Outpatient (CLI) | payer MEDICARE, OTHER ==
[2025-06-19 10:46] LABS: INR 0.9 (<1.2); Partial Thromboplastin Time 24.7 sec (22.0-30.0); Prothrombin Time 10.4 sec (10.0-12.5)
[2025-06-19 15:18] LABS: Basophils # (A) 0.05 X 10*3/uL (0.00-0.10); Basophils % (A) 1.1 %; Eosinophils # (A) 0.12 X 10*3/uL (0.04-0.35); Eosinophils % (A) 2.6 %; HCT 40.9 % (37.2-46.3); HGB 13.1 g/dL (12.0-15.0); Immature Grans, Automated 0.20 %; Lymphocytes # (A) 1.16 X 10*3/uL (0.90-5.00); Lymphocytes % (A) 24.9 %; MCH 29.0 pg (27.0-32.0); MCHC 32.0 g/dL (32.0-37.0); MCV 90.5 FL (80.0-97.0); Monocytes # (A) 0.42 X 10*3/uL (0.20-1.00); Monocytes % (A) 9.0 %; NRBC Per 100 WBC 0 X 10*3/uL (0.00-0.01); Neutrophils # (A) 2.90 X 10*3/uL (1.80-7.70); Neutrophils % (A) 62.2 %; Platelet Count 232 X 10*3/uL (140-440); RBC 4.52 X 10*6/uL (4.10-5.20); RDW 13.4 % (11.5-14.5); WBC 4.66 X 10*3/uL (4.50-10.00)
[2025-06-19 15:48] LABS: NT-Pro-B-Type Natriuretic Pept 128 pg/mL (0-125)
[2025-06-19 17:00] LABS: ALT 15 U/L (8-44); AST 24 U/L (13-35); Albumin 4.3 g/dL (3.8-4.9); Albumin/Globulin Ratio 3.07 Ratio (1.60-3.17); Alkaline Phosphatase 66 U/L (41-126); Anion Gap 12.90 mmol/L (4.00-12.00); BUN/Creat Ratio 16.33 Ratio (12.00-20.00); Blood Urea Nitrogen 14.7 mg/dL (9.0-27.0); Calcium 9.4 mg/dL (8.7-10.3); Carbon Dioxide 23.1 mmol/L (21.6-31.8); Chloride 103 mmol/L (96-109); Globulin 1.4 g/dL (1.6-3.3); Glucose 110 mg/dL (70-110); Potassium 4.1 mmol/L (3.5-5.5); Sodium 139 mmol/L (135-145); T4, Free (Free Thyroxine) 1.69 ng/dL (0.80-1.80); Total Protein 5.7 g/dL (6.2-8.2)
== END | disposition home or self-care (01) ==
LOC: LABWHC1 09:36
PROVIDERS: ATTEND Family Medicine
DX: Z01.812 Encounter for preprocedural laboratory examination (principal)
CPT/HCPCS: 36415; 80053; 83880; 84439; 84443; 84481; 85025; 85610; 85730

== ENCOUNTER → 2025-06-19 | Outpatient (CLI) | payer MEDICARE, OTHER ==
[2025-06-19 10:12] VITALS: BP 125/82; PULSE 92; RESP 18
--- NOTE | 2025-06-19 13:15 | P.PAINPG ---
Objective - Vital Signs Vital signs: Vital Signs Temp Pulse 92 06/19/25 10:02 Resp 18 06/19/25 10:02 BP 125/82 06/19/25 10:02 Pulse Ox 99 06/19/25 10:02 FiO2 Intake & Output 06/18/25 06/19/25 06/19/25 18:59 06:59 18:59 Weight 61.689 kg PQRS Measure Charge Sheet Mode of Arrival: Ambulatory Comment: A 74 yr old female with a history of severe and chronic LBP secondary to radiculopathy, spondylosis with facet arthropathy without myelopathy presents today for medication refills. Pain level is provoked at 7 /10 in intensity, constant, predominantly axial, localized in the lumbar spine, dull in character w occasional shooting towards the flanks. Pain is provoked by bending, over activity. Pain is alleviated with physician guided stretches daily since Nov 2023, heat, ice, medications, topical, repositioning and rest. Oswestry axial pain score at 29. Interventional pain procedures completed include Patient is currently on Gem 10/325mg #90 Patient denies any side effects of the medication(s), denies excessive drowsiness or sleepiness, denies suicidal ideation and reports that the current pain medication is helping to control the pain and improve activities of daily living. Patient denies any motor or sensory deficits. Patient denies any fever or night sweats, denies any change in the bowel movements or urination. Physical Examination: -Constitutional: Cooperative. Not in acute distress . - Neurologic: Cranial nerve II to XII intact. No focal neurological deficits. - Psychatric: Alert & oriented x 3. Matching mood & appropriate affect. Judgment and insight intact. - Musculoskeletal: Cervical spine: Muscle bulk/ tone/ strength in the bilateral upper extremities normal Vertebral body tenderness to palpation over Spurling test positive Distraction test positive Facet loading test positive TTP Thoracic spine Muscle bulk / tone/ strength in the bilateral paraspinal muscles normal Vertebral body tender to palpation over Facet loading test positive TTP Lumbar spine: Motor bulk/ tone/ strength lower extremities , thigh and legs : 5/5 Deep tendon reflexes : Normal Knee Jerk. Normal Ankle Jerk . Vertebral body tenderness to palpation over Vazquez Test positive Lumbar Facet Loading Test positive Straight Leg Raise: positive at 30 degrees right side/ left side Gaenslen's Test positive Sacral spine : Severe tenderness over the Sacroiliac joint: right side / left side Range of motion: Flexion of the lumbar spine <60 degrees Range of motion: Extension of the lumbar spine <20 degrees Gaenslen's Test positive right side / left side Marshall test: positive right side / left side Thigh Thrust Test positive right side / left side Sacral Thrust Test positive right side / left side Assessment and plan: Chronic LBP secondary to lumbar radiculopathy, spondylosis with facet arthropathy without myelopathy Chronic and current use of high-risk medication (Opioids). The patient was counseled about risk of opioid use, psychological risk associated with opioids and was orally counseled to not overuse , divert or sell medications. Pt is to store medication in a safe location. The patient is counseled against driving while using narcotic medications and also not to use alcohol or any illicit recreational drugs. Patient verbalized understanding that the lack of compliance will result in failure to renew narcotic prescription(s) as well as possible discharge from the clinic Diagnoses, prognosis and treatment options including but not limited to physical therapy, surgical interventions, interventional therapies and medication management including narcotics and adjuvant medication were discussed. All patient questions answered . Use, side effects, adverse reactions, safe storage discussed. Blood tox screen from 02/20/25 reviewed and consistent. MAPS reviewed and it was appropriate. Opiate/ narcotic agreement signed 12/15/24. E-script for Gem 10/325mg #90 w 1 RF. I have spent less than 30 minutes on patient care today. Dr Mcfarland was available by phone for the evaluation of this patient. The time was used to review the medical records including relevant urine studies and Prescription history (MAPs), review of the available imaging, evaluation and examination of the patient, coordination of care with the medical staff and if applicable referring physicians, as well as creation of the medical record - Pain Location Generalized Non-Pharmacological Interventions: Chiropractic Treatment, Heat, Ice, Massage, Physical Therapy, TENS Unit Pharmacological Interventions: Epidural, Medication PQRS Narrative: Smoking Status Former smoker Narcotic Agreement Date Signed 12/12/24 Blood Pressure 125/82 Pain Intensity [Generalized] 10 Scale Used Numeric (1 - 10) Hx Alcohol Use (MH) No Home Medications: Ambulatory Orders Pramipexole [Mirapex] 0.5 mg PO HS 04/18/14 Simvastatin [Zocor] 10 mg PO HS 06/20/16 estradioL [Estradiol] 1 mg PO HS 04/14/17 Levothyroxine Sodium 100 mcg PO HS 10/09/21 amLODIPine BESYLATE 5 mg PO HS 10/09/21 Pantoprazole [Protonix] 40 mg PO HS 01/01/23 Nystatin/Triamcinolone Acet [Nystatin-Triamcinolone Oint] 1 applic VAGINAL DIRECTED 11/02/24 Sodium Chloride 5% Ophth Soln [Sina 128] 1 drops BOTH EYES DAILY 11/02/24 Vibegron [Gemtesa] 75 mg PO HS 11/02/24 HYDROcodone/APAP 10-325MG [Gem 10-325] 1 tab PO TID PRN 30 Days #90 tab 06/19/25 HYDROcodone/APAP 10-325MG [Gem 10-325] 1 tab PO TID PRN 30 Days #90 tab 06/19/25 hydroCHLOROthiazide 12.5 mg PO DAILY 06/19/25 Controlled Substance Measures - Controlled Substance Measures Is patient prescribed a controlled substance at discharge?: Yes When asked, does pt state using other controlled substances?: No If prescribed controlled substance>3 days was MAPS reviewed?: Yes
== END ==
LOC: PNWHC3 09:50
PROVIDERS: ATTEND Specialist
DX: M47.26 Other spondylosis with radiculopathy, lumbar region (principal); Z91.048 Other nonmedicinal substance allergy status; Z88.5 Allergy status to narcotic agent; Z88.1 Allergy status to other antibiotic agents; Z88.2 Allergy status to sulfonamides; Z88.0 Allergy status to penicillin; Z91.013 Allergy to seafood; Z88.7 Allergy status to serum and vaccine; Z88.8 Allergy status to other drugs, medicaments and biological substances; Z87.891 Personal history of nicotine dependence; Z79.891 Long term (current) use of opiate analgesic
CPT/HCPCS: 99212